=== PATIENT | female | born 1980 | race Caucasian/White ===

== ENCOUNTER 2016-11-28 10:32 | Emergency (ER) | payer MEDICAID ==
[~2016-11-28] VITALS: Ht 167.6 cm; Wt 108.9 kg
[~2016-11-28 10:32] MED LIST: AMOX-355 PO; CEPH500C PO; CYCL10TA9 PO; FRS325T PO; HYDR-91 PO; HYDR1CAP2 PO; IBP600T1 PO; IBP800T PO; MAGN100T3 PO; MTH.2T PO; PHENERGAN PO; POTA99TA7 PO; PRD20T PO; PREN1TAB39 PO; PROP1TAB77 PO
[2016-11-28] MEDS ORDERED: KETOROLAC 30 MG/ML VIAL IVP STA (11:31)
[2016-11-28] MEDS ORDERED: ORPHENADRINE 60 MG/2 ML (NORFLEX) AMP IV STA (11:31)
[2016-11-28] MEDS ORDERED: NS IV 1000 ML 1,000 ML IV ONE (11:31)
[2016-11-28] MEDS ORDERED: diphenhydrAMINE 50 MG/ML INJ (BENADRYL) IV STA (11:31)
--- NOTE | 2016-11-28 11:43 | ED Headache ---
General Chief Complaint: Head/Cervical Problems Stated Complaint: MIGRAINE Nursing Triage Note: PT STATES MIGRAINE FOR LAST THREE DAYS, HX OF MIGRAINES, ALSO LT SHOLDER PAIN THAT CAME AFTER THE MIGRAINE. Nursing Sepsis Screen: No Definite Risk Source: patient Exam Limitations: no limitations History of Present Illness Time seen by provider: 11:43 Initial Comments 36-year-old female patient presents to the emergency room for complaints of 3 day onset of migraine. Patient states she has a history of migraines and this feels similar to those. Does complain of left shoulder pain beginning this a.m. when she woke up. Denies known injury. Denies taking tylenol or motrin at home. Patient states she normally goes to [place] [facility] for migraines. Timing/Duration: waxing and waning, other (3 days) Severity/Quality: throbbing Location: frontal, parietal Prior Headaches/Recent Trauma: occasional headaches Modifying Factors: worse with exposure to light, worse with other (sound sensitivities) Associated Symptoms: No confusion, No fatigue, No fever/chills, No loss of consciousness, No nasal congestion, No numbness in legs/feet, No sinus infection , stiff neck (left neck and shoulder stiffness), No vision changes, No weakness Allergies and Home Medications Allergies Coded Allergies: No Known Drug Allergies (Unverified , 01/25/10) Home Medications Cyclobenzaprine HCl 10 Mg Tablet, 10 MG PO Q8H PRN for SPASMS, #14 Ref 0 Prescribed by: TOI GREENE on 11/28/16 1226 Prednisone 20 Mg Tab, 40 MG PO DAILY, #6 Prescribed by: ROBERT LIANG on 06/26/16 1840 Prednisone 20 Mg Tab, 40 MG PO DAILY, #10 Ref 0 Prescribed by: TOI GREENE on 11/28/16 1226 Constitutional: No chills, No dizziness, No fever, No malaise, No weakness Eyes: Denies Blurred Vision, Denies Decreased Acuity, Denies Pain, Photophobia , Denies Vision Changes, Glasses Ears, Nose, Mouth, Throat: denies ear pain, denies ear discharge, denies nose pain, denies nose discharge, denies mouth pain, denies loose teeth, denies throat pain Respiratory: cough (cough x1 wk since mowing her mother's yard (has seasonal allergies)), No dyspnea on exertion, No phlegm, No short of breath, No wheezing Cardiovascular: No chest pain, No edema, No palpitations, No syncope Gastrointestinal: No abdominal pain, No diarrhea, No nausea, No vomiting Genitourinary: no symptoms reported Musculoskeletal: No back pain, joint pain (left shoulder), No joint swelling, muscle pain (left neck and shoulder), muscle stiffness (left neck and left shoulder), neck pain Skin: no symptoms reported Psychiatric/Neurological: Headache, Denies Numbness, Denies Paresthesia, Denies Seizure, Denies Tingling, Denies Tremors, Denies Weakness All Other Systems Reviewed Negative Unless Noted: Yes (Negative excepted noted.) Past Iogdgrd-Yxxink-Qmaogd Hx Patient Social History Alcohol Use: Denies Use Recreational Drug Use: No (SMOKES 1/2 PPD) Smoking Status: Current Everyday Smoker Type Used: Cigarettes Recent Foreign Travel: No Contact w/Someone Who Travel: No Recent Infectious Disease Expo: No Recent Hopitalizations: No Immunizations Up To Date Date of Influenza Vaccine: Jun 07, 2011 Seasonal Allergies Seasonal Allergies: Yes Surgeries HX Surgeries: Yes Surgeries: Adenoidectomy, Tonsillectomy, Tubal Ligation Respiratory Hx Respiratory Disorders: No Cardiovascular Hx Cardiac Disorders: No Neurological Hx Neurological Disorders: Yes Neurological Disorders: Headaches /Migraines Reproductive System Hx Reproductive Disorders: No [employer]S SCIENTIST History: Tubal Ligation Genitourinary Hx Genitourinary Disorders: No Gastrointestinal Hx Gastrointestinal Disorders: No Musculoskeletal Hx Musculoskeletal Disorders: No Endocrine Hx Endocrine Disorders: Yes (OBESITY) Endocrine Disorders: Hypothyroidsim HEENT HX ENT Disorders: No Cancer Hx Cancer: No Psychosocial Hx Psychiatric Problems: No Integumentary HX Skin/Integumentary Disorder: No Blood Transfusions Hx Blood Disorders: No Reviewed Nursing Assessment Reviewed/Agree w Nursing PMH: Yes Family Medical History Significant Family History: No Pertinent Family Hx Physical Exam Vital Signs Vital Sign - Last 12Hours 11/28/16 10:56 Temp 98.4 Pulse 89 Resp 20 B/P (MAP) 138/87 Pulse Ox 97 O2 Delivery Room Air Capillary Refill : Less Than 3 Seconds General Appearance: WD/WN, no apparent distress HEENT: PERRL/EOMI, normal ENT inspection, TMs normal, pharynx normal, photophobia Neck: full range of motion, supple, tender lateral (left neck muscle spasm and tenderness), No tender midline Cardiovascular: normal peripheral pulses, regular rate, rhythm, no edema, no murmur Respiratory: lungs clear, normal breath sounds, no respiratory distress Gastrointestinal: non tender, soft, No distended Extremities: no pedal edema, normal capillary refill Psychiatric: alert, oriented x 3 Crainal Nerves: normal hearing, normal speech, PERRL Coordination/Gait: normal finger to nose, normal gait, negative Romberg's sign Motor/Sensory: no motor deficit, no sensory deficit, no pronator drift Skin: normal color, warm/dry Progress/Results/Core Measures Results/Orders My Orders Orders - TOI GREENE Saline Lock/Iv-Start (11/28/16 11:31) Ketorolac Injection (Toradol Injection) (11/28/16 11:31) Orphenadrine Injection (Norflex Injectio (11/28/16 11:31) Ondansetron Injection (Zofran Injectio (11/28/16 11:45) Ns Iv 1000 Ml (Sodium Chloride 0.9%) (11/28/16 11:31) Diphenhydramine Injection (Benadryl Inje (11/28/16 11:31) Morphine Injection (Morphine Injection (11/28/16 12:43) Dexamethasone Pf Injection (Decadron Pf (11/28/16 12:43) Medications Given in ED Current Medications Medications Dose Ordered Sig/Alvaro Route Start Time Stop Time Status Last Admin Dose Admin Ondansetron HCl 4 mg ONCE ONCE IVP 11/28/16 11:45 11/28/16 11:46 DC 11/28/16 11:45 4 MG Sodium Chloride 1,000 ml @ 0 mls/hr Q0M ONCE IV 11/28/16 11:31 11/28/16 11:34 DC 11/28/16 11:46 1,000 MLS/HR Vital Signs/I&O Vital Sign - Last 12Hours 11/28/16 10:56 Temp 98.4 Pulse 89 Resp 20 B/P (MAP) 138/87 Pulse Ox 97 O2 Delivery Room Air Blood Pressure Mean: 104 Departure Communication Progress Notes Patient was given Toradol, Norflex, 1 L normal saline, Benadryl, and Zofran with improvement in symptoms. Patient continued to have a headache of 4/10 and was given morphine and Decadron. Patient reports resolution of symptoms with above medications. Proceed with discharge to home. Impression Impression: Primary Impression: Migraine Qualified Codes: G43.009 - Migraine without aura, not intractable, without status migrainosus Additional Impression: Acute strain of neck muscle Qualified Codes: S16.1XXA - Strain of muscle, fascia and tendon at neck level , initial encounter Disposition: HOME, SELF-CARE Condition: Improved Departure-Patient Inst. Decision time for Depature: 12:24 Referrals: [facility] (PCP/Family) Primary Care Physician Patient Instructions: Migraine Headache (DC), Cervical Muscle Strain (DC) Add. Discharge Instructions: All discharge instructions reviewed with patient and/or family. Voiced understanding. Tylenol extra strength [id number] as directed for pain or headache. Ibuprofen 800 mg by mouth every 8 hours as needed for pain or headache. Drink plenty of fluids. Heating pad or pack as needed for muscle pain. Avoid bright lights and loud noises until symptoms improve. Follow-up with your family practitioner if no improvement in symptoms. Return to the emergency department for worsened pain, numbness, weakness, bowel incontinence, bladder incontinence, shortness of air, chest pain, seizure, vomiting, fever, changes in behavior, changes in speech, or any other concerns. Scripts Cyclobenzaprine HCl (Cyclobenzaprine HCl) 10 Mg Tablet 10 MG PO Q8H Y for SPASMS, #14 TAB 0 Refills Prov: TOI GREENE 11/28/16 Prednisone (Prednisone) 20 Mg Tab 40 MG PO DAILY, #10 TAB 0 Refills Prov: TOI GREENE 11/28/16 Work/School Note: Work Release Form Date Seen in the Emergency Department: Nov 28, 2016 Return to Work: Nov 29, 2016 TOI GREENE Nov 28, 2016 11:43
[2016-11-28] MEDS ORDERED: ONDANSETRON 4 MG/2 ML (SDV) Z0FRAN IVP ONE (11:45)
[2016-11-28] MEDS ORDERED: PRD20T PO (12:26)
[2016-11-28] MEDS ORDERED: CYCL10TA9 PO (12:26)
[2016-11-28] MEDS ORDERED: morphine INJ 10 MG/ML 1ML (SYR OR VIAL) IVP STA (12:43)
[2016-11-28] MEDS ORDERED: DEXAMETHASONE PF 10 MG/ML (DECADRON) VIAL IV STA (12:43)
[2016-11-28 13:45] VITALS: BP 117/71
== END 2016-11-28 13:45 | disposition home or self-care (01) ==
LOC: EDUNIT# 10:32 → ER 10:35
DX: G43.909 Migraine, unspecified, not intractable, without status migrainosus (principal); S16.1XXA Strain of muscle, fascia and tendon at neck level, initial encounter; F17.210 Nicotine dependence, cigarettes, uncomplicated; X50.9XXA Other and unspecified overexertion or strenuous movements or postures, initial encounter; Y99.8 Other external cause status
CPT/HCPCS: 96361; 96374; 96375

== ENCOUNTER 2017-08-19 20:54 | Emergency (ER) | payer MEDICAID ==
[~2017-08-19] VITALS: Ht 167.6 cm; Wt 111.6 kg
[2017-08-19] MEDS ORDERED: LEVO25TA5 (21:03)
[2017-08-19] MEDS ORDERED: KETOROLAC 60 MG/2 ML VIAL IM STA (21:37)
[2017-08-19] MEDS ORDERED: ONDANSETRON 4 MG (ZOFRAN) ORAL DISSOLVE TAB SL STA (21:37)
[2017-08-19] MEDS ORDERED: ORPHENADRINE 60 MG/2 ML (NORFLEX) AMP IM STA (21:37)
--- NOTE | 2017-08-19 21:39 | ED Headache ---
General Chief Complaint: Head/Cervical Problems Stated Complaint: NECK PAIN Nursing Triage Note: left neck pain/headache Nursing Sepsis Screen: No Definite Risk Source: patient Exam Limitations: no limitations History of Present Illness Time seen by provider: 21:39 Allergies and Home Medications Allergies Coded Allergies: No Known Drug Allergies (Unverified , 01/25/10) Home Medications Levothyroxine Sodium 25 Mcg Tablet, (Reported) Past Vfbpbpz-Cjcxsd-Fwgpmg Hx Patient Social History Alcohol Use: Denies Use Recreational Drug Use: No Smoking Status: Current Everyday Smoker Type Used: Cigarettes Recent Foreign Travel: No Contact w/Someone Who Travel: No Recent Infectious Disease Expo: No Recent Hopitalizations: No Immunizations Up To Date Tetanus Booster (TDap): Unknown Date of Influenza Vaccine: Jun 07, 2011 Seasonal Allergies Seasonal Allergies: Yes Surgeries History of Surgeries: Yes (dnc) Surgeries: Adenoidectomy, Tonsillectomy, Tubal Ligation Respiratory History of Respiratory Disorde: No Cardiovascular History of Cardiac Disorders: No Neurological History of Neurological Disord: Yes Neurological Disorders: Headaches /Migraines Reproductive System : No Last Menstrual Period: Aug 19, 2017 Hx Reproductive Disorders: No [employer] History: Tubal Ligation Genitourinary History of Genitourinary Disor: No Gastrointestinal History of Gastrointestinal Di: No Musculoskeletal History of Musculoskeletal Dis: No Endocrine History of Endocrine Disorders: Yes (OBESITY) Endocrine Disorders: Hypothyroidsim HEENT History of HEENT Disorders: No Cancer History of Cancer: No Psychosocial History of Psychiatric Problem: No Integumentary History of Skin or Integumenta: No Blood Transfusions History of Blood Disorders: No Family Medical History Significant Family History: No Pertinent Family Hx Physical Exam Vital Signs Vital Sign - Last 12Hours 08/19/17 21:00 Temp 96.6 Pulse 82 Resp 18 B/P (MAP) 136/70 (92) Pulse Ox 99 O2 Delivery Room Air Capillary Refill : Less Than 3 Seconds Progress/Results/Core Measures Results/Orders My Orders Orders - OTI GREENE Ketorolac Injection (Toradol Injection) (08/19/17 21:37) Orphenadrine Injection (Norflex Injectio (08/19/17 21:37) Ondansetron Oral Dissolve Tab (Zofran (08/19/17 21:37) Diphenhydramine Tablet (Benadryl Tablet) (08/19/17 21:45) Medications Given in ED Current Medications Medications Dose Ordered Sig/Alvaro Route Start Time Stop Time Status Last Admin Dose Admin Diphenhydramine HCl 25 mg ONCE ONCE PO 08/19/17 21:45 08/19/17 21:46 DC 08/19/17 21:45 25 MG Vital Signs/I&O Vital Sign - Last 12Hours 08/19/17 08/19/17 21:00 21:45 Temp 96.6 96.6 Pulse 82 Resp 18 B/P (MAP) 136/70 (92) Pulse Ox 99 O2 Delivery Room Air Blood Pressure Mean: 92 Departure Impression Impression: Primary Impression: Tension type headache Disposition: HOME, SELF-CARE Condition: Improved Departure-Patient Inst. Decision time for Depature: 22:35 Referrals: [facility] (PCP/Family) Primary Care Physician Patient Instructions: Tension Headache (DC) Add. Discharge Instructions: All discharge instructions reviewed with patient and/or family. Voiced understanding. Tylenol Extra Strength [id number]-[id number] as directed for pain. Ibuprofen 800 mg by mouth every 8 hours as needed for pain. Heating pads or packs as needed for muscle tension. Activity as tolerated. Follow-up with your primary care provider for recheck as an outpatient Monday or Monday for recheck. Return to the emergency department for worsened headache, dizziness, changes in vision, slurred speech, visual drooping, numbness, weakness, bowel incontinence, chest pain, shortness of air, or any other concerns. TOI GREENE Aug 19, 2017 21:39
[2017-08-19] MEDS ORDERED: diphenhydrAMINE 25 MG TAB (BENADRYL) PO ONE (21:45)
[2017-08-19 23:05] VITALS: BP 124/68
== END 2017-08-19 23:03 | disposition home or self-care (01) ==
LOC: EDUNIT# 20:54 → ER 20:55
DX: G44.209 Tension-type headache, unspecified, not intractable (principal); E03.9 Hypothyroidism, unspecified; E66.9 Obesity, unspecified; G43.909 Migraine, unspecified, not intractable, without status migrainosus; F17.210 Nicotine dependence, cigarettes, uncomplicated; Z98.51 Tubal ligation status; Z90.89 Acquired absence of other organs; Z68.39 Body mass index [BMI] 39.0-39.9, adult
CPT/HCPCS: 99284

== ENCOUNTER 2018-09-26 17:52 | Emergency (ER) | payer MEDICAID ==
[~2018-09-26] VITALS: Ht 167.6 cm; Wt 117.9 kg
[~2018-09-26 17:52] MED LIST changes: +LEVO25TA5
--- OUTSIDE RECORDS SUMMARY | 2018-09-26 18:14 | XMS REPORT ---
Author Author JAISON QURESHI [facility] Address [address] [place] [address] Care Team Providers Care Clinical Massage Therapist Name Role Phone JAISON QURESHI Unavailable PROBLEMS Type Condition ICD9-CM Code [id number] Code Onset Dates Condition Status SNOMED Code Problem Moderate episode of recurrent major depressive disorder F33.1 Active 765416482 Problem Other specified hypothyroidism E03.8 Active 550910354 Problem Autoimmune thyroiditis E06.3 Active 55366706 ALLERGIES No Known Allergies ENCOUNTERS Encounter Location Date Diagnosis [address] [id number] Jun, [address] [id number] May, Myalgia M79.[address] [place] [id number] [place] [address] [id number] May, Other specified hypothyroidism E03.8 and Moderate episode of recurrent major depressive disorder F33.[address] [place] [id number] [place] [address] [id number] Feb, Tendonitis M77.9 ; Posterior right knee pain M25.561 and Strain of right knee, subsequent encounter S86.911D [place] [id number] [place] [address] [id number] Feb, Tendonitis M77.[address] [place] [id number] [place] [address] [id number] December, [address] [id number] December, Left hand pain M79.[address] [place] [id number] [place] [address] [id number] Oct, BMI 40.0-44.9, adult Z68.41 and Acute nasopharyngitis J00 [address] [id number] May, Visit for suture removal Z48.02 ; Encounter for vaccination Z23 and Encounter for immunization Z23 [address] [place] [address] [id number] December, Tooth decayed K02.9 and Tooth caries K02.9 [place] [id number] [place] [address] [id number] December, Autoimmune thyroiditis E06.3 and Acute nasopharyngitis J00 [address] [place] [address] [id number] Oct, Syncope, unspecified syncope type R55 ; Other specified hypothyroidism E03.8 and Autoimmune thyroiditis E06.[address] [place] [address] [id number] Oct, Muscle spasm M62.838 and Neck pain, acute M54.[address] [place] [id number] [id number] Jan, Hordeolum externum of right upper eyelid H00.[address] [place] [address] [id number] December, [address] [place] [address] [id number] December, Hypothyroid 244.9 [facility] [id number] [place] [id number] [phone] Nov, [facility] [id number] [place] [address] Nov, [facility] [id number] [place] [address] [id number] [phone] Aug, [facility] [address] [id number] Aug, [id number] [place] [address] [id number] Aug, [facility] [address] [address] Aug, [facility] [address] [id number] [place] [id number] Aug, [facility] [place] [facility] [address] [id number] [place] [address] Aug, [facility] [address] [id number] [place] [id number] Jul, [facility] [place] [facility] [address] [id number] [place] [address] Jul, [facility] [address] [id number] [place] [id number] Jul, [facility] [place] [facility] [address] [facility] [id number] [place] [address] Jul, [facility] [address] [facility] [id number] [place] [id number] Jun, [facility] [place] [facility] [address] [id number] [address] Jun, [facility] [place] [facility] [address] [facility] [id number], [place] [address] Aug, [facility] [place] [facility] [address] [facility] [id number], [place] [address] Aug, [facility] [address] [facility] [id number] [id number] Mar, [facility] [address] [facility] [id number][place] [id number] Jul, [facility] [place] [facility] [address] [id number], [place] [address] Jul, [facility] [place] [facility] [address] [id number], [place] [address] Jun, [facility] [address] [facility] [id number] [place] [id number] Jun, [facility] [place] [facility] [address] [facility] [id number], [place] [address] Sep, [facility] [place] [facility] [address] [facility] [id number] [place] [address] Jun, [facility] [address] [facility] [id number], [place] [address] Jun, [facility] [address] [facility] [id number], [place] [address] May, [facility] [address] [facility] [id number][place] [address] May, [facility] [address] [facility] [id number], [place] [address] May, IMMUNIZATIONS No Known Immunizations SOCIAL HISTORY Never Assessed REASON FOR VISIT needing refills on thyroid meds, last TSH checked was in 10/21. Also wanting something for nerves, Feels she can't handle stress. karlo Cardenas PLAN OF CARE Activity Details Follow Up 4 Weeks Reason:depression VITAL SIGNS Height 68 in 2018-05-07 Weight 253.2 lbs 2018-05-07 Temperature 98.1 degrees Fahrenheit 2018-05-07 Heart Rate 78 bpm 2018-05-07 Respiratory Rate 16 2018-05-07 BMI 38.49 kg/m2 2018-05-07 Blood pressure systolic 122 mmHg 2018-05-07 Blood pressure diastolic 74 mmHg 2018-05-07 MEDICATIONS Medication Instructions Dosage Frequency Start Date End Date Duration Status Ibuprofen 800 MG Orally Three times a day 1 tablet with food or milk as needed 8h Active Levothyroxine Sodium 25 mcg Orally Once a day 1 tablet 24h December, Active Sertraline HCl 25 MG Orally Once a day 1 tablet x 2 wk then 2 tab qd 24h May, Active RESULTS No Results PROCEDURES No Known procedures INSTRUCTIONS MEDICATIONS ADMINISTERED No Known Medications MEDICAL (GENERAL) HISTORY Type Description Date Medical History Frequent Migraines Medical History Hypothyroidism Surgical History tubal ligation 2011 Surgical History tonsillectomy 1985 Surgical History dilatation and curettage 2009
--- OUTSIDE RECORDS SUMMARY | 2018-09-26 18:14 | XMS REPORT ---
Author Author MAGO NYE Organization [facility] Address [address] [place] [address] Care Team Providers Care Leather Polisher Name Role Phone MAGO NYE Unavailable PROBLEMS Type Condition ICD9-CM Code OTI04-UN Code Onset Dates Condition Status SNOMED Code Problem Other specified hypothyroidism E03.8 Active 849718267 Problem Autoimmune thyroiditis E06.3 Active 85704884 ALLERGIES No Known Allergies ENCOUNTERS Encounter Location Date Diagnosis [place] [id number] [place] [id number] May, [address] [id number] Feb, Tendonitis M77.9 ; Posterior right knee pain M25.561 and Strain of right knee, subsequent encounter S86.911D [place] [address] [id number] Feb, Tendonitis M77.9 [facility] [id number] [place] [address] [id number] December, [place] [id number] [place] [address] [id number] December, Left hand pain M79.[address] [id number] Oct, BMI 40.0-44.9, adult Z68.41 and Acute nasopharyngitis J00 [address] [id number] May, Visit for suture removal Z48.02 ; Encounter for vaccination Z23 and Encounter for immunization Z23 [place] [id number] [place] [address] [id number] December, Tooth decayed K02.9 and Tooth caries K02.9 [facility] [id number] [id number] December, Autoimmune thyroiditis E06.3 and Acute nasopharyngitis J00 [place] [id number] [place] [address] [id number] Oct, Syncope, unspecified syncope type R55 ; Other specified hypothyroidism E03.8 and Autoimmune thyroiditis E06.3 [facility] [id number] [place] [address] [id number] Oct, Muscle spasm M62.838 and Neck pain, acute M54.2 [place] [address] [facility] [id number] [id number] Jan, Hordeolum externum of right upper eyelid H00.011 [facility] [address] [place] [address] [id number] December, [place] [id number] [place] [address] [id number] December, Hypothyroid 244.9 [facility] [id number] [place] [address] [id number]- 6528 Nov, [facility] [address] [address] Nov, [facility] [id number] [place] [address] 886655- 8740 Aug, [facility] [id number] [place] [address] 54233- 9619 Aug, [facility] [id number] [place] [address] [id number] Aug, [facility] [id number] [place] [address] 18645- 1652 Aug, [facility] [address] [place] [address] [id number] Aug, [facility] [id number] [place] [address] 04459- 6996 Aug, [facility] [address] [place] [id number] [id number] Jul, [facility] [address] [id number] [place] [address] Jul, [facility] [address] [id number] [place] [id number] Jul, [facility] [place] [facility] [address] [id number] [place] [address] Jul, [facility] [address] [id number] [place] [phone] Jun, [facility] [place] [facility] [address] [id number] [place] [address]- 6936 Jun, [facility] [place] [facility] [address] [facility] [id number] [place] [address] 84[address] Aug, [facility] [place] [facility] [address] [id number] [place] [address]- 9[address] Aug, [facility] [address] [id number][place] [id number] Mar, [facility] [address] [facility] [id number] [place] [id number] Jul, [facility] [place] [facility] [address] [facility] [id number] [place] [address]- 3606 Jul, [facility] [place] [facility] [address] [id number], [place] [address] 5686 Jun, [facility] [address] [facility] [id number] [place] [id number] Jun, [facility] [place] [facility] [address] [id number], [place] [address] Sep, [facility] [place] [facility] [address] [id number] [place] [address]- 5266 Jun, [facility] [place] [facility] [address] [id number] [place] [address]- 2546 Jun, [facility] [place] [facility] [address] [facility] [id number] [place] [address] 7[address] May, [facility] [address] [facility] [id number] [place] [address] 79[address] May, [facility] [address] [facility] [id number] [place] [address] May, IMMUNIZATIONS No Known Immunizations SOCIAL HISTORY Never Assessed REASON FOR VISIT back of right knee pain since . Awa worthy, Saw Morteza on for same R knee pain. She stated that he said the "tendon was enlarged" PLAN OF CARE Activity Details Follow Up 3-4 weeks if pain not improving Reason: VITAL SIGNS Height 68 in 2018-02-20 Weight 262.6 lbs 2018-02-20 Temperature 98.4 degrees Fahrenheit 2018-02-20 Heart Rate 81 bpm 2018-02-20 Respiratory Rate 10 2018-02-20 Oximetry 98 % 2018-02-20 BMI 39.92 kg/m2 2018-02-20 Blood pressure systolic 122 mmHg 2018-02-20 Blood pressure diastolic 70 mmHg 2018-02-20 MEDICATIONS Medication Instructions Dosage Frequency Start Date End Date Duration Status Ibuprofen 800 MG Orally Three times a day 1 tablet with food or milk as needed 8h Active Benzonatate 100 mg Orally Three times a day 1 capsule as needed 8h Oct, Not-Taking Levothyroxine Sodium 25 MCG Orally Once a day 1 tablet 24h December, Active RESULTS No Results PROCEDURES No Known procedures INSTRUCTIONS MEDICATIONS ADMINISTERED No Known Medications MEDICAL (GENERAL) HISTORY Type Description Date Medical History Frequent Migraines Medical History Hypothyroidism Surgical History tubal ligation 2011 Surgical History tonsillectomy 1985
--- OUTSIDE RECORDS SUMMARY | 2018-09-26 18:14 | XMS REPORT ---
Author Author JAISON QURESHI [facility] Address [address] [place] [address] Care Team Providers Care Computer Installation Engineer Name Role Phone QURESHIJAISON Unavailable PROBLEMS Type Condition ICD9-CM Code TVW93-XG Code Onset Dates Condition Status SNOMED Code Problem Other specified hypothyroidism E03.8 Active 738793288 Problem Autoimmune thyroiditis E06.3 Active 88935982 ALLERGIES No Known Allergies ENCOUNTERS Encounter Location Date Diagnosis [place] [id number] [place] [id number] Apr, [address] [id number] Feb, Tendonitis M77.9 ; Posterior right knee pain M25.561 and Strain of right knee, subsequent encounter S86.911D [place] [id number] [place] [address] [id number] Feb, Tendonitis M77.9 [place] [id number] [place] [address] [id number] December, [place] [id number] [place] [address] [id number] December, Left hand pain M79.642 [place] [id number] [place] [address] [id number] Oct, BMI 40.0-44.9, adult Z68.41 and Acute nasopharyngitis J00 [address] [id number] May, Visit for suture removal Z48.02 ; Encounter for vaccination Z23 and Encounter for immunization Z23 [place] [id number] [place] [address] [id number] December, Tooth decayed K02.9 and Tooth caries K02.[address] [id number] December, Autoimmune thyroiditis E06.3 and Acute [facility]itis J00 [facility] [address] [place] [address] [id number] Oct, Syncope, unspecified syncope type R55 ; Other specified hypothyroidism E03.8 and Autoimmune thyroiditis E06.3 [facility] [id number] [place] [address] [id number] Oct, Muscle spasm M62.838 and Neck pain, acute M54.2 [facility] [place] [address] [facility] [id number] [id number] Jan, Hordeolum externum of right upper eyelid H00.011 [facility] [address] [place] [address] [id number] December, [facility] [id number] [place] [address] [id number] December, Hypothyroid 244.9 [facility] [id number] [place] [address] 83636- 6926 Nov, [facility] [id number] [place] [address] 49536- 3996 Nov, [facility] [id number] [place] [address] 51871- 2656 Aug, [facility] [id number] [place] [address] 14498- 5776 Aug, [facility] [address] [place] [id number] [place] [address] [id number] Aug, [facility] [id number] [place] [address] 93830- 4816 Aug, [facility] [address] [id number] [place] [address] [id number] Aug, [facility] [id number] [place] [address] 99340- 2546 Aug, [facility] [id number] [place] [address] [id number] Jul, [facility] [place] [facility] [address] [id number], [place] [address] 2356 Jul, [facility] [address] [facility] [id number] [place] [id number] Jul, [facility] [place] [facility] [address] [id number], [place] [address] 2546 Jul, [facility] [address] [facility] [id number] [place] [id number] Jun, [facility] [place] [facility] [address] [facility] [id number] [place] [address]- 3436 Jun, [facility] [place] [facility] [address] [facility] [id number] [place] [address]- 2050 Aug, [facility] [place] [facility] [address] [facility] [id number], [place] [address]- 0642 Aug, [facility] [address] [place] [id number] [id number] Mar, [facility] [address] [facility] [id number][place] [id number] Jul, [facility] [place] [facility] [address] [place] [id number], [place] [address]- 4356 Jul, [facility] [place] [facility] [address] [place] [id number], [place] [address]- 2426 Jun, [facility] [address] [place] [id number][place] [phone] Jun, [facility] [place] [facility] [address] [id number], [place] [address]- 4646 Sep, [facility] [place] [facility] [address] [id number], [place] [address]- 2256 Jun, [facility] [place] [facility] [address] [facility] [id number], [place] [address]- 6736 Jun, [facility] [place] [facility] [address] [facility] [id number], [place] [address]- 7854 May, [facility] [place] [facility] [address] [facility] [id number] [place] [address]- 6432 May, [facility] [address] [facility] [id number] [place] [address]- 3385 May, IMMUNIZATIONS No Known Immunizations SOCIAL HISTORY Never Assessed REASON FOR VISIT Pt c/o right knee pain, woke up this morning burning pain, hurts to walk on it Rhonda KUNZ PLAN OF CARE Activity Details Follow Up prn Reason: VITAL SIGNS Height 68 in 2018-02-15 Weight 256.4 lbs 2018-02-15 Temperature 97.8 degrees Fahrenheit 2018-02-15 Heart Rate 94 bpm 2018-02-15 Respiratory Rate 20 2018-02-15 BMI 38.98 kg/m2 2018-02-15 Blood pressure systolic 122 mmHg 2018-02-15 Blood pressure diastolic 78 mmHg 2018-02-15 MEDICATIONS Medication Instructions Dosage Frequency Start Date End Date Duration Status Ibuprofen 800 MG Orally Three times a day 1 tablet with food or milk as needed 8h December, Active Levothyroxine Sodium 25 MCG Orally Once a day 1 tablet 24h December, Active Benzonatate 100 mg Orally Three times a day 1 capsule as needed 8h Oct, Not-Taking RESULTS No Results PROCEDURES No Known procedures INSTRUCTIONS MEDICATIONS ADMINISTERED No Known Medications MEDICAL (GENERAL) HISTORY Type Description Date Medical History Frequent Migraines Medical History Hypothyroidism Surgical History tubal ligation 2011 Surgical History tonsillectomy 1985
[2018-09-26] MEDS ORDERED: DICYCLOMINE 10 MG (BENTYL) CAP PO STA (18:15)
[2018-09-26] MEDS ORDERED: fentaNYL INJECTION 100 MCG/2 ML AMP IVP STA (18:15)
--- OUTSIDE RECORDS SUMMARY | 2018-09-26 18:15 | XMS REPORT ---
Author Author MAYTE SNOW [facility] Address [address] [place] [address] Care Team Providers Care Dental Coordinator Name Role Phone MAYTE SNOW Unavailable PROBLEMS Type Condition ICD9-CM Code MYX36-YW Code Onset Dates Condition Status SNOMED Code Problem Other specified hypothyroidism E03.8 Active 307769401 Problem Autoimmune thyroiditis E06.3 Active 21448477 Problem Migraine, unspecified without mention of intractable migraine without mention of status migrainosus 346.90 Active 12049950 Problem Headache 784.0 Active 37862630 Problem Hordeolum externum of right upper eyelid H00.011 Active 6091184 Problem Hypothyroid 244.9 Active 07992677 ALLERGIES No Known Allergies SOCIAL HISTORY Never Assessed PLAN OF CARE Activity Details Follow Up prn Reason: VITAL SIGNS Height 68 in 2016-12-15 Weight 255.6 lbs 2016-12-15 Temperature 97.9 degrees Fahrenheit 2016-12-15 Heart Rate 56 bpm 2016-12-15 Respiratory Rate 16 2016-12-15 BMI 38.86 kg/m2 2016-12-15 Blood pressure systolic 128 mmHg 2016-12-15 Blood pressure diastolic 72 mmHg 2016-12-15 MEDICATIONS Medication Instructions Dosage Frequency Start Date End Date Duration Status Amoxicillin 500 mg Orally every 12 hrs 2 tablets 12h December, December, 10 day(s) Active RESULTS No Results PROCEDURES No Known procedures IMMUNIZATIONS No Known Immunizations MEDICAL (GENERAL) HISTORY Type Description Date Medical History Frequent Migraines Surgical History tubal ligation 2011 Surgical History tonsillectomy 1985
--- OUTSIDE RECORDS SUMMARY | 2018-09-26 18:15 | XMS REPORT ---
Author Author JAISON QURESHI [facility] Address [address] [place] [address] Care Team Providers Care Cementer Machine Applicator Name Role Phone JAISON QURESHI Unavailable PROBLEMS Type Condition ICD9-CM Code BES11-OZ Code Onset Dates Condition Status SNOMED Code Problem Other specified hypothyroidism E03.8 Active 155412416 Problem Autoimmune thyroiditis E06.3 Active 79193568 ALLERGIES No Known Allergies ENCOUNTERS Encounter Location Date Diagnosis [address] [id number] Feb, Tendonitis M77.9 ; Posterior right knee pain M25.561 and Strain of right knee, subsequent encounter S86.911D [address] [id number] Feb, Tendonitis M77.[address] [id number] December, [address] [id number] December, Left hand pain M79.[address] [id number] Oct, BMI 40.0-44.9, adult Z68.41 and Acute nasopharyngitis J00 [address] [id number] May, Visit for suture removal Z48.02 ; Encounter for vaccination Z23 and Encounter for immunization Z23 [address] [id number] December, Tooth decayed K02.9 and Tooth caries K02.9 [place] [id number] [place] [address] [id number] December, Autoimmune thyroiditis E06.3 and Acute nasopharyngitis J00 [facility] [address] [facility] [id number] [id number] 14 Oct, 2016 Syncope, unspecified syncope type R55 ; Other specified hypothyroidism E03.8 and Autoimmune thyroiditis E06.3 [facility] [id number][place] [id number] 06 Oct, 2016 Muscle spasm M62.838 and Neck pain, acute M54.2 [facility] [address] [id number][place] [id number] Jan, Hordeolum externum of right upper eyelid H00.011 [facility] [id number] [place] [address] [id number] December, [facility] [id number] [place] [address] [id number] December, Hypothyroid 244.9 [facility] [place] [address] [id number] [place] [address] 21769- 3326 Nov, [facility] [place] [id number] [place] [address] 54573- 7753 Nov, [facility] [place] [address] [id number] [place] [address] 71949- 2279 Aug, [facility] [place] [address] [id number] [place] [address] 95635- 1676 Aug, [facility] [id number], [place] [id number] Aug, [facility] [place] [id number] [place] [address] 14283- 0776 Aug, [facility] [id number], [place] [id number] Aug, [facility] [place] [id number] [place] [address] 55807 2546 Aug, [facility] [id number], [place] [id number] Jul, [facility] [place] [id number] [place] [address] 48060- 8232 Jul, [facility] [address] [id number] [place] [id number] Jul, [facility] [address] [id number] [place] [address]- 2406 Jul, [facility] [address] [id number] [place] [id number] Jun, [facility] [place] [facility] [address] [facility] [id number], [place] [address]- 7989 Jun, [facility] [place] [facility] [address] [id number], [place] [address]- 4652 Aug, [facility] [place] [facility] [address] [id number] [place] [address]- 9852 Aug, [facility] [address] [id number] [place] [id number] Mar, [facility] [address] [id number] [place] [id number] Jul, [facility] [place] [facility] [address] [id number], [place] [address]- 9112 Jul, [facility] [place] [facility] [address] [facility] [id number], [place] [address]- 7833 Jun, [facility] [address] [facility] [id number] [place] [id number] Jun, [facility] [place] [facility] [address] [facility] [id number], [place] [address]- 8348 Sep, [facility] [place] [facility] [address] [facility] [id number], [place] [address]- 0217 Jun, [facility] [place] [facility] [address] [facility] [id number], [place] [address]- 8451 Jun, [facility] [place] [facility] [address] [facility] [id number], [place] [address]- 1091 May, [facility] [place] [facility] [address] [facility] [id number], [place] [address]- 7889 May, [facility] [place] [facility] [address] [facility] [id number] [place] [address]- 4691 May, IMMUNIZATIONS No Known Immunizations SOCIAL HISTORY Never Assessed REASON FOR VISIT cough and congestion x 4 days. karlo Cardenas PLAN OF CARE Activity Details Follow Up prn Reason: VITAL SIGNS Height 68 in 2017-10-30 Weight 266 lbs 2017-10-30 Temperature 98.2 degrees Fahrenheit 2017-10-30 Heart Rate 78 bpm 2017-10-30 Respiratory Rate 16 2017-10-30 BMI 40.44 kg/m2 2017-10-30 Blood pressure systolic 122 mmHg 2017-10-30 Blood pressure diastolic 76 mmHg 2017-10-30 MEDICATIONS Medication Instructions Dosage Frequency Start Date End Date Duration Status Levothyroxine Sodium 25 MCG Orally Once a day 1 tablet 24h December, Active Benzonatate 100 mg Orally Three times a day 1 capsule as needed 8h Oct, Active RESULTS No Results PROCEDURES No Known procedures INSTRUCTIONS MEDICATIONS ADMINISTERED No Known Medications MEDICAL (GENERAL) HISTORY Type Description Date Medical History Frequent Migraines Medical History Hypothyroidism Surgical History tubal ligation 2011 Surgical History tonsillectomy 1985
--- OUTSIDE RECORDS SUMMARY | 2018-09-26 18:15 | XMS REPORT ---
Author Author JAISON QURESHI [facility] Address [address] [place] [address] Care Team Providers Care Press Washer Name Role Phone JAISON QURESHI Unavailable PROBLEMS Type Condition ICD9-CM Code [id number] Code Onset Dates Condition Status SNOMED Code Problem Other specified hypothyroidism E03.8 Active 021020892 Problem Autoimmune thyroiditis E06.3 Active 07868887 Problem Migraine, unspecified without mention of intractable migraine without mention of status migrainosus 346.90 Active 31132317 Problem Headache 784.0 Active 04046540 Problem Hordeolum externum of right upper eyelid H00.011 Active 1977338 Problem Hypothyroid 244.9 Active 27820854 ALLERGIES No Known Allergies SOCIAL HISTORY Never Assessed PLAN OF CARE Activity Details Follow Up prn Reason: VITAL SIGNS Height 68 in 2016-12-06 Weight 249.4 lbs 2016-12-06 Temperature 98.2 degrees Fahrenheit 2016-12-06 Heart Rate 78 bpm 2016-12-06 Respiratory Rate 18 2016-12-06 BMI 37.92 kg/m2 2016-12-06 Blood pressure systolic 120 mmHg 2016-12-06 Blood pressure diastolic 72 mmHg 2016-12-06 MEDICATIONS No Known Medications RESULTS No Results PROCEDURES No Known procedures IMMUNIZATIONS No Known Immunizations MEDICAL (GENERAL) HISTORY Type Description Date Medical History Frequent Migraines Surgical History tubal ligation 2011 Surgical History tonsillectomy 1985
--- OUTSIDE RECORDS SUMMARY | 2018-09-26 18:15 | XMS REPORT ---
Author Author JAISON QURESHI [facility] Address [address] [place] [address] Care Team Providers Care Metalizing Machine Operator Automatic Name Role Phone QURESHIJAISON Unavailable PROBLEMS Type Condition ICD9-CM Code NCK01-LN Code Onset Dates Condition Status SNOMED Code Problem Other specified hypothyroidism E03.8 Active 419435387 Problem Autoimmune thyroiditis E06.3 Active 12727248 ALLERGIES No Known Allergies ENCOUNTERS Encounter Location Date Diagnosis [place] [id number] [place] [id number] Apr, [address] [id number] Feb, Tendonitis M77.9 ; Posterior right knee pain M25.561 and Strain of right knee, subsequent encounter S86.911D [place] [id number] [place] [address] [id number] Feb, Tendonitis M77.9 [place] [id number] [place] [address] [id number] December, [place] [id number] [place] [address] [id number] December, Left hand pain M79.642 [place] [id number] [place] [address] [id number] Oct, BMI 40.0-44.9, adult Z68.41 and Acute nasopharyngitis J00 [address] [id number] May, Visit for suture removal Z48.02 ; Encounter for vaccination Z23 and Encounter for immunization Z23 [place] [id number] [place] [address] [id number] December, Tooth decayed K02.9 and Tooth caries K02.9 [address] [id number] December, Autoimmune thyroiditis E06.3 and Acute nasopharyngitis J00 [facility] [place] [id number] [place] [address] [id number] Oct, Syncope, unspecified syncope type R55 ; Other specified hypothyroidism E03.8 and Autoimmune thyroiditis E06.3 [facility] [place] [id number] [place] [address] [id number] Oct, Muscle spasm M62.838 and Neck pain, acute M54.2 [facility] [place] [id number] [facility] [id number] [id number] Jan, Hordeolum externum of right upper eyelid H00.011 [facility] [id number] [place] [address] [id number] December, [facility] [id number] [place] [address] [id number] December, Hypothyroid 244.9 [facility] [id number] [place] [address]30- 8196 Nov, [facility] [id number] [place] [address] 57809- 1856 Nov, [facility] [id number] [place] [address]04- 1586 Aug, [facility] [id number] [place] [address] 51091- 3666 Aug, [facility] [id number] [place] [address] [id number] Aug, [facility] [id number] [place] [address] 44284- 3556 Aug, [facility] [id number] [place] [address] [id number] Aug, [facility] [id number] [place] [address] 57[address]- 2546 Aug, [facility] [id number] [place] [address] [id number] Jul, [facility] [place] [facility] [address] [id number], [place] [address] Jul, [facility] [address] [facility] [id number] [place] [id number] Jul, [facility] [place] [facility] [address] [id number], [place] [address]46 Jul, [facility] [address] [facility] [id number] [place] [phone] Jun, [facility] [place] [facility] [address] [facility] [id number] [place] [address] 1196 Jun, [facility] [place] [facility] [address] [facility] [id number] [place] [address] 4876 Aug, [facility] [place] [facility] [address] [facility] [id number], [place] [address] Aug, [facility] [address] [id number] [id number] Mar, [facility] [address] [facility] [id number][place] [id number] Jul, [facility] [place] [facility] [address] [id number], [place] [address] Jul, [facility] [place] [facility] [address] [id number], [place] [address] Jun, [facility] [address] [place] [address] [id number] [id number] Jun, [facility] [place] [facility] [address] [id number], [place] [address] Sep, [facility] [place] [facility] [address] [id number], [place] [address] 69[address] Jun, [facility] [place] [facility] [address] [facility] [id number], [place] [address]56 Jun, [facility] [place] [facility] [address] [facility] [id number], [place] [address] May, [facility] [place] [facility] [address] [facility] [id number] [place] [address] May, [facility] [address] [facility] [id number] [place] [address] May, IMMUNIZATIONS No Known Immunizations SOCIAL HISTORY Never Assessed REASON FOR VISIT Left hand pain x24 hours. States that it was "smashed" Rashawn GONZALEZ PLAN OF CARE Activity Details Follow Up 2 Weeks Reason:hand VITAL SIGNS Height 68 in 2017-12-13 Weight 257.6 lbs 2017-12-13 Temperature 98.2 degrees Fahrenheit 2017-12-13 Heart Rate 80 bpm 2017-12-13 Respiratory Rate 16 2017-12-13 BMI 39.16 kg/m2 2017-12-13 Blood pressure systolic 116 mmHg 2017-12-13 Blood pressure diastolic 74 mmHg 2017-12-13 MEDICATIONS Medication Instructions Dosage Frequency Start Date End Date Duration Status Benzonatate 100 mg Orally Three times a day 1 capsule as needed 8h Oct, Not-Taking Levothyroxine Sodium 25 MCG Orally Once a day 1 tablet 24h December, Active Ibuprofen 800 MG Orally Three times a day 1 tablet with food or milk as needed 8h December, Active RESULTS Name Result Date Reference Range Xray : Hand, Left 2017-12-13 PROCEDURES No Known procedures INSTRUCTIONS MEDICATIONS ADMINISTERED No Known Medications MEDICAL (GENERAL) HISTORY Type Description Date Medical History Frequent Migraines Medical History Hypothyroidism Surgical History tubal ligation 2011 Surgical History tonsillectomy 1985
--- OUTSIDE RECORDS SUMMARY | 2018-09-26 18:15 | XMS REPORT ---
Author Author MAGO NYE Organization [facility] Address [address] [place] [address] Care Team Providers Care Pension Fund Manager Name Role Phone MAGO NYE Unavailable PROBLEMS Type Condition ICD9-CM Code ETS04-WF Code Onset Dates Condition Status SNOMED Code Problem Other specified hypothyroidism E03.8 Active 245979551 Problem Autoimmune thyroiditis E06.3 Active 29536639 Problem Migraine, unspecified without mention of intractable migraine without mention of status migrainosus 346.90 Active 60229681 Problem Headache 784.0 Active 85335048 Problem Hordeolum externum of right upper eyelid H00.011 Active 2808626 Problem Hypothyroid 244.9 Active 40264721 ALLERGIES No Known Allergies SOCIAL HISTORY Never Assessed PLAN OF CARE Activity Details Follow Up 4 Weeks Reason:if s/s not improved VITAL SIGNS Height 68 in 2016-10-10 Weight 250.6 lbs 2016-10-10 Temperature 97.9 degrees Fahrenheit 2016-10-10 Heart Rate 76 bpm 2016-10-10 Respiratory Rate 16 2016-10-10 BMI 38.10 kg/m2 2016-10-10 Blood pressure systolic 120 mmHg 2016-10-10 Blood pressure diastolic 68 mmHg 2016-10-10 MEDICATIONS Medication Instructions Dosage Frequency Start Date End Date Duration Status Baclofen 10 mg Orally Two times a day for muscle spasms 1 tablet with food or milk Oct, Oct, 14 days Active Ibuprofen 800 MG Orally Three times a day 1 tablet 8h Oct, Nov, 30 day(s) Active RESULTS No Results PROCEDURES No Known procedures IMMUNIZATIONS No Known Immunizations MEDICAL (GENERAL) HISTORY Type Description Date Medical History Frequent Migraines Surgical History tubal ligation 2011 Surgical History tonsillectomy 1985
--- OUTSIDE RECORDS SUMMARY | 2018-09-26 18:15 | XMS REPORT ---
Author Author JAISON QURESHI [facility] Address [address] [place] [address] Care Team Providers Care Multimedia Engineer Name Role Phone JAISON QURESHI Unavailable PROBLEMS Type Condition ICD9-CM Code BGT69-ZA Code Onset Dates Condition Status SNOMED Code Problem Other specified hypothyroidism E03.8 Active 443377558 Problem Autoimmune thyroiditis E06.3 Active 48846833 Problem Migraine, unspecified without mention of intractable migraine without mention of status migrainosus 346.90 Active 64274156 Problem Headache 784.0 Active 66347899 Problem Hordeolum externum of right upper eyelid H00.011 Active 7009367 Problem Hypothyroid 244.9 Active 50354436 ALLERGIES No Known Allergies SOCIAL HISTORY Never Assessed PLAN OF CARE Activity Details Follow Up 1 Week Reason:lab results VITAL SIGNS Height 68 in 2016-10-18 Weight 248 lbs 2016-10-18 Temperature 97.1 degrees Fahrenheit 2016-10-18 Heart Rate 80 bpm 2016-10-18 Respiratory Rate 18 2016-10-18 BMI 37.70 kg/m2 2016-10-18 Blood pressure systolic 128 mmHg 2016-10-18 Blood pressure diastolic 62 mmHg 2016-10-18 MEDICATIONS Medication Instructions Dosage Frequency Start Date End Date Duration Status Baclofen 10 mg Orally Two times a day for muscle spasms 1 tablet with food or milk Oct, Oct, 14 days Active Ibuprofen 800 MG Orally Three times a day 1 tablet 8h Oct, Nov, 30 day(s) Active RESULTS Name Result Date Reference Range TSH 2016-10-18 TSH 4.620 0.450-4.500 PROCEDURES Procedure Date Ordered Result Body Site ASSAY THYROID STIM HORMONE October 18, 2016 VENIPUNCT, ROUTINE* October 18, 2016 IMMUNIZATIONS No Known Immunizations MEDICAL (GENERAL) HISTORY Type Description Date Medical History Frequent Migraines Surgical History tubal ligation 2011 Surgical History tonsillectomy 1985
--- OUTSIDE RECORDS SUMMARY | 2018-09-26 18:15 | XMS REPORT ---
Author Author JAISON QURESHI [facility] Address [address] [place] [address] Care Team Providers Care Medical Records Supervisor Name Role Phone QURESHIJAISON Unavailable PROBLEMS Type Condition ICD9-CM Code WKR06-WK Code Onset Dates Condition Status SNOMED Code Problem Other specified hypothyroidism E03.8 Active 935493906 Problem Autoimmune thyroiditis E06.3 Active 20357322 ALLERGIES No Information ENCOUNTERS Encounter Location Date Diagnosis [place] [id number] [place] [id number] Mar, [address] [id number] Feb, Tendonitis M77.9 ; Posterior right knee pain M25.561 and Strain of right knee, subsequent encounter S86.911D [place] [id number] [place] [address] [id number] Feb, Tendonitis M77.9 [place] [id number] [place] [address] [id number] December, [place] [id number] [place] [address] [id number] December, Left hand pain M79.642 [place] [id number] [place] [address] [id number] Oct, BMI 40.0-44.9, adult Z68.41 and Acute nasopharyngitis J00 [address] [id number] May, Visit for suture removal Z48.02 ; Encounter for vaccination Z23 and Encounter for immunization Z23 [place] [id number] [place] [address] [id number] December, Tooth decayed K02.9 and Tooth caries K02.[address] [id number] December, Autoimmune thyroiditis E06.3 and Acute nasopharyngitis J00 [facility] [place] [id number] [place] [address] [id number] Oct, Syncope, unspecified syncope type R55 ; Other specified hypothyroidism E03.8 and Autoimmune thyroiditis E06.3 [facility] [place] [id number] [place] [address] [id number] Oct, Muscle spasm M62.838 and Neck pain, acute M54.2 [facility] [place] [address] [id number] [id number] Jan, Hordeolum externum of right upper eyelid H00.011 [facility] [address] [place] [id number] [place] [address] [id number] December, [facility] [id number] [place] [address] [id number] December, Hypothyroid 244.9 [facility] [id number] [place] [address] 09775- 0966 Nov, [facility] [id number] [place] [address] 98836- 6336 Nov, [facility] [id number] [place] [address] 41860- 5776 Aug, [facility] [id number] [place] [address] 78370- 8846 Aug, [facility] [id number] [place] [address] [id number] Aug, [facility] [id number] [place] [address] 49026 2546 Aug, [facility] [id number] [place] [address] [id number] Aug, [facility] [id number] [place] [address] 03959- 2546 Aug, [facility] [id number] [place] [address] [id number] Jul, [facility] [place] [facility] [address] [id number], [place] [address] Jul, [facility] [address] [facility] [id number] [place] [id number] Jul, [facility] [place] [facility] [address] [id number], [place] [address] Jul, [facility] [address] [facility] [id number][place] [id number] Jun, [facility] [place] [facility] [address] [facility] [id number] [place] [address]- 67[address] Jun, [facility] [place] [facility] [address] [facility] [id number] [place] [address]- 8139 Aug, [facility] [place] [facility] [address] [facility] [id number], [place] [address] 9937 Aug, [facility] [address] [facility] [id number][place] [id number] Mar, [facility] [address] [facility] [id number], [place] [phone] Jul, [facility] [place] [facility] [address] [facility] [id number], [place] [address] 6[address] Jul, [facility] [place] [facility] [address] [facility] [id number], [place] [address] 4915 Jun, [facility] [address] [place] [id number] [id number] Jun, [facility] [place] [facility] [address] [id number], [place] [address] 46[address] Sep, [facility] [place] [facility] [address] [id number], [place] [address] 9146 Jun, [facility] [place] [facility] [address] [facility] [id number], [place] [address]- 9656 Jun, [facility] [place] [facility] [address] [facility] [id number], [place] [address]- 5894 May, [facility] [place] [facility] [address] [facility] [id number] [place] [address]- 6242 May, [facility] [address] [facility] [id number] [place] [address]- 5880 May, IMMUNIZATIONS No Known Immunizations SOCIAL HISTORY Never Assessed REASON FOR VISIT requesting a returned call PLAN OF CARE VITAL SIGNS MEDICATIONS Unknown Medications RESULTS No Results PROCEDURES No Known procedures INSTRUCTIONS MEDICATIONS ADMINISTERED No Known Medications MEDICAL (GENERAL) HISTORY Type Description Date Medical History Frequent Migraines Medical History Hypothyroidism Surgical History tubal ligation 2011 Surgical History tonsillectomy 1985
[2018-09-26 18:20] LABS: BILIRUBIN,URINE NEGATIVE (NEGATIVE); CLARITY,URINE CLEAR; COLOR,URINE YELLOW; GLUCOSE, URINE (UA) NEGATIVE (NEGATIVE); KETONES,URINE NEGATIVE (NEGATIVE); LEUKOCYTE ESTERASE ,URINE 1+ (NEGATIVE); NITRITE,URINE NEGATIVE (NEGATIVE); PH,URINE 7 (5-9); PROTEIN,URINE NEGATIVE (NEGATIVE); UROBILINOGEN,URINE NORMAL (NORMAL)
--- NOTE | 2018-09-26 18:22 | ED Abdominal Pain ---
General Chief Complaint: Abdominal/GI Problems Stated Complaint: ABD PAIN History of Present Illness Date Seen by Provider: Sep 26, 2018 Time Seen by Provider: 18:10 Initial Comments 38-year-old female presents for lower abdominal pain, most significantly on the right side. Patient reports the pain began at 0700 this morning, she was able to work all day and ate lunch at 1300. She reports the pain was intermittent throughout the day. She denies any nausea or vomiting associated with the pain. She reports a normal bowel movement this morning. She was recently seen by her primary care provider who started her on Protonix for acid reflux, she has not gotten the prescription yet. Timing/Duration: 12 Hours Allergies and Home Medications Allergies Coded Allergies: No Known Drug Allergies (Unverified , 01/25/10) Home Medications Tramadol HCl 50 Mg Tablet, 50 MG PO Q8H PRN for PAIN-MODERATE TO SEVERE Prescribed by: ALPHONSO ZAMORA on 09/26/181940 Patient Home Medication List Home Medication List Reviewed: Yes Review of Systems Review of Systems Constitutional: no symptoms reported, see HPI Gastrointestinal: See HPI, Abdominal Pain Past Fajtuxv-Vxgyor-Rmjtxd Hx Patient Social History Alcohol Use: Denies Use Recreational Drug Use: No (SMOKES 1/2 PPD) Smoking Status: Current Everyday Smoker Type Used: Cigarettes 2nd Hand Smoke Exposure: Yes Recent Foreign Travel: No Contact w/Someone Who Travel: No Recent Hopitalizations: No Immunizations Up To Date Tetanus Booster (TDap): Unknown Date of Influenza Vaccine: Jun 07, 2011 Seasonal Allergies Seasonal Allergies: Yes Past Medical History Surgeries: Yes (dnc) Adenoidectomy, Tonsillectomy, Tubal Ligation Respiratory: No Cardiac: No Neurological: Yes Headaches /Migraines 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 oz. 111.019593nx; 40.72 BMI Method:Stated General Appearance: WD/WN, no apparent distress Neck: non-tender, full range of motion, supple, normal inspection Respiratory: chest non-tender, lungs clear, normal breath sounds Cardiovascular: normal peripheral pulses, regular rate, rhythm, no edema Gastrointestinal: normal bowel sounds, soft; No distended (right lower quadrant ), No guarding, No rebound; tenderness; No hernia, No mass Neurologic/Psychiatric: no motor/sensory deficits, alert, normal mood/affect Skin: normal color, warm/dry Progress/Results/Core Measures Results/Orders Lab Results Laboratory Tests Test 09/26/18 18:02 09/26/18 18:10 Range/Units Urine Color YELLOW Urine Clarity CLEAR Urine pH 7 5-9 Urine Specific Gibson 1.010 L 1.016-1.022 Urine Protein NEGATIVE NEGATIVE Urine Glucose (UA) NEGATIVE NEGATIVE Urine Ketones NEGATIVE NEGATIVE Urine Nitrite NEGATIVE NEGATIVE Urine Bilirubin NEGATIVE NEGATIVE Urine Urobilinogen NORMAL NORMAL MG/DL Urine Leukocyte Esterase 1+ H NEGATIVE Urine RBC (Auto) NEGATIVE NEGATIVE Urine RBC RARE /HPF Urine WBC 2-5 /HPF Urine Squamous Epithelial Cells 2-5 /HPF Urine Crystals NONE /LPF Urine Bacteria TRACE /HPF Urine Casts NONE /LPF Urine Mucus NEGATIVE /LPF Urine Culture Indicated NO White Blood Count 8.1 4.3-11.0 10^3/uL Red Blood Count 4.88 4.35-5.85 10^6/uL Hemoglobin 13.9 11.5-16.0 G/DL Hematocrit 42 35-52 % Mean Corpuscular Volume 87 80-99 FL Mean Corpuscular Hemoglobin 29 25-34 PG Mean Corpuscular Hemoglobin Concent 33 32-36 G/DL Red Cell Distribution Width 15.4 H 10.0-14.5 % Platelet Count 301 130-400 10^3/uL Mean Platelet Volume 10.4 7.4-10.4 FL Neutrophils (%) (Auto) 63 42-75 % Lymphocytes (%) (Auto) 30 12-44 % Monocytes (%) (Auto) 6 0-12 % Eosinophils (%) (Auto) 1 0-10 % Basophils (%) (Auto) 0 0-10 % Neutrophils # (Auto) 5.1 1.8-7.8 X 10^3 Lymphocytes # (Auto) 2.4 1.0-4.0 X 10^3 Monocytes # (Auto) 0.5 0.0-1.0 X 10^3 Eosinophils # (Auto) 0.1 0.0-0.3 10^3/uL Basophils # (Auto) 0.0 0.0-0.1 10^3/uL Sodium Level 138 135-145 MMOL/L Potassium Level 3.8 3.6-5.0 MMOL/L Chloride Level 104 98-107 MMOL/L Carbon Dioxide Level 24 21-32 MMOL/L Anion Gap 10 5-14 MMOL/L Blood Urea Nitrogen 9 7-18 MG/DL Creatinine 0.78 0.60-1.30 MG/DL Estimat Glomerular Filtration Rate > 60 BUN/Creatinine Ratio 12 Glucose Level 78 70-105 MG/DL Calcium Level 9.0 8.5-10.1 MG/DL Corrected Calcium 8.8 8.5-10.1 MG/DL Total Bilirubin 0.2 0.1-1.0 MG/DL Aspartate Amino Transf (AST/SGOT) 19 5-34 U/L Alanine Aminotransferase (ALT/SGPT) 18 0-55 U/L Alkaline Phosphatase 86 40-136 U/L Total Protein 7.4 6.4-8.2 GM/DL Albumin 4.2 3.2-4.5 GM/DL Amylase Level 38 25-125 U/L Lipase 22 8-78 U/L My Orders Orders - ALPHONSO ZAMORA SYSTEM ENGINEER Valproic Acid (09/26/18 17:57) Ua Culture If Indicated (09/26/18 17:58) Comprehensive Metabolic Panel (09/26/18 18:15) Lipase (09/26/18 18:15) Amylase (09/26/18 18:15) Cbc With Automated Diff (09/26/18 18:15) Dicyclomine Capsule (Bentyl Capsule) (09/26/18 18:15) Fentanyl Injection (Sublimaze Injection (09/26/18 18:15) Ct Abdomen/Pelvis Wo (09/26/18 19:09) Vital Signs/I&O 09/26/18 09/26/18 17:57 20:00 Temp 98.0 98.0 Pulse 94 76 Resp 19 18 B/P (MAP) 148/76 (100) 123/86 (98) Pulse Ox 100 99 O2 Delivery Room Air Room Air Progress Progress Note : Time: 18:10 Progress Note Patient seen and evaluated. Will check labs and reevaluate. Fentanyl 50 g and Bentyl 10 mg for pain. 1849 patient continuing to have mild pain on the right lower quadrant, we'll obtain CT study of abdomen and pelvis. 1929 CT results reviewed with patient. She continues to have trace pain in the right lower quadrant. No left lower quadrant pain where the ovarian cyst is present. Discharge instructions and return precautions reviewed. Diagnostic Imaging Diagonstic Imaging: CT Plain Films/CT/US/NM/MRI: abdomen, pelvis Comments NAME: ROSALINDA WAGONER [facility] REC#: [id number] PT STATUS: REG ER : 1980 PHYSICIAN: ALPHONSO ZAMORAP ADMIT DATE: 09/26/18/ER Draft Date of Exam:09/26/18 CT ABDOMEN/PELVIS WO PROCEDURE: CT abdomen and pelvis without contrast. TECHNIQUE: Multiple contiguous axial images were obtained through the abdomen and pelvis without the use of intravenous contrast. INDICATION: Right lower quadrant pain for 12 hours, previous tubal ligation. COMPARISON STUDY: CTA chest from 2015. FINDINGS: The lung bases are clear. The liver, gallbladder, spleen, pancreas and adrenal glands are normal. No renal calculi or hydronephrosis is present. Kidneys appear normal. There is a normal appearance of the appendix. Uterus is normal. There is a 4.5 cm cyst of the left ovary. No ascites is present. There are no hernias. No inflammatory or obstructive changes are present in the bowel loops. Bone windows demonstrate mild degenerative changes. IMPRESSION: 1. There is a 4.5 cm left ovarian cyst. 2. Mild degenerative changes present in the bowel. Dictated on workstation # [id number] Dict: 09/26/181923 Trans: 09/26/181930 [id number] Interpreted by: KELBY FORD MD Electronically signed by: Reviewed: Reviewed by Me Departure Impression Primary Impression: Right lower quadrant abdominal pain Additional Impression: Left ovarian cyst Disposition: HOME, SELF-CARE Condition: Improved Departure-Patient Inst. Decision time for Depature: 19:30 Referrals: [facility] (PCP/Family) Primary Care Physician Patient Instructions: Acute Abdomen (Belly Pain), Adult (DC), Ovarian Cyst (DC) Add. Discharge Instructions: Follow-up with your primary care provider for referral to gynecology. You may alternate between Tylenol 650 mg and ibuprofen 600 mg every 4 hours for pain. If pain is not tolerated with Tylenol and ibuprofen, he may take the tramadol every 8 hours. Return to emergency department for increased abdominal pain, All discharge instructions reviewed with patient and/or family. Voiced understanding. Scripts Tramadol HCl (Tramadol HCl) 50 Mg Tablet 50 MG PO Q8H PRN for PAIN-MODERATE TO SEVERE, #20 TAB 0 Refills Prov: ALPHONSO ZAMORA 09/26/18 ALPHONSO ZAMORA Sep 26, 2018 18:21
[2018-09-26 18:24] LABS: BASOPHILS % (AUTO) 0 % (0-10); EOSINOPHILS # (AUTO) 0.1 10^3/uL (0.0-0.3); EOSINOPHILS % (AUTO) 1 % (0-10); HEMATOCRIT 42 % (35-52); HEMOGLOBIN 13.9 G/DL (11.5-16.0); LYMPHOCYTES # (AUTO) 2.4 X 10^3 (1.0-4.0); LYMPHOCYTES % (AUTO) 30 % (12-44); MEAN CORPUSCULAR HEMOGLOBIN 29 PG (25-34); MEAN CORPUSCULAR HGB CONC 33 G/DL (32-36); MEAN CORPUSCULAR VOLUME 87 FL (80-99); MEAN PLATELET VOLUME 10.4 FL (7.4-10.4); MONOCYTES # (AUTO) 0.5 X 10^3 (0.0-1.0); MONOCYTES % (AUTO) 6 % (0-12); NEUTROPHILS # (AUTO) 5.1 X 10^3 (1.8-7.8); NEUTROPHILS % (AUTO) 63 % (42-75); PLATELET COUNT 301 10^3/uL (130-400); RED CELL DISTRIBUTION WIDTH 15.4 % (10.0-14.5); WHITE BLOOD COUNT 8.1 10^3/uL (4.3-11.0)
[2018-09-26 18:28] LABS: BACTERIA,URINE TRACE /HPF; RBC,URINE RARE /HPF
[2018-09-26 18:41] LABS: ALANINE AMINOTRANSFERASE 18 U/L (0-55); ALBUMIN 4.2 GM/DL (3.2-4.5); ALKALINE PHOSPHATASE 86 U/L (40-136); AMYLASE 38 U/L (25-125); BILIRUBIN,TOTAL 0.2 MG/DL (0.1-1.0); BUN/CREATININE RATIO 12; CARBON DIOXIDE 24 MMOL/L (21-32); CHLORIDE 104 MMOL/L (98-107); CREATININE SERUM 0.78 MG/DL (0.60-1.30); GFR ESTIMATED > 60; GLUCOSE 78 MG/DL (70-105); LIPASE 22 U/L (8-78); POTASSIUM 3.8 MMOL/L (3.6-5.0); SODIUM 138 MMOL/L (135-145); TOTAL PROTEIN 7.4 GM/DL (6.4-8.2)
--- NOTE | 2018-09-26 18:51 | NUR ---
ASSUMED CARE OF PT @ THIS TIME.
--- NOTE | 2018-09-26 19:31 | Diagnostic Imaging Report ---
PROCEDURE: CT abdomen and pelvis without contrast. TECHNIQUE: Multiple contiguous axial images were obtained through the abdomen and pelvis without the use of intravenous contrast. INDICATION: Right lower quadrant pain for 12 hours, previous tubal ligation. COMPARISON STUDY: CTA chest from 2015. FINDINGS: The lung bases are clear. The liver, gallbladder, spleen, pancreas and adrenal glands are normal. No renal calculi or hydronephrosis is present. Kidneys appear normal. There is a normal appearance of the appendix. Uterus is normal. There is a 4.5 cm cyst of the left ovary. No ascites is present. There are no hernias. No inflammatory or obstructive changes are present in the bowel loops. Bone windows demonstrate mild degenerative changes. IMPRESSION: 1. There is a 4.5 cm left ovarian cyst. 2. Mild degenerative changes present in the spine. Dictated by: Dictated on workstation # [id number]
[2018-09-26] MEDS ORDERED: TRAM50TA2 PO (19:41)
[2018-09-26 20:00] VITALS: BP 123/86
== END 2018-09-26 20:00 | disposition home or self-care (01) ==
LOC: EDUNIT# 17:52 → ER 17:56
DX: N83.202 Unspecified ovarian cyst, left side (principal); G43.909 Migraine, unspecified, not intractable, without status migrainosus; E66.9 Obesity, unspecified; E03.9 Hypothyroidism, unspecified; F17.210 Nicotine dependence, cigarettes, uncomplicated; Z68.41 Body mass index [BMI] 40.0-44.9, adult; Z98.51 Tubal ligation status; Z90.89 Acquired absence of other organs
CPT/HCPCS: 36415; 74176; 80053; 81000; 82150; 83690; 85025

== ENCOUNTER 2020-01-10 15:17 | Emergency (ER) | payer MEDICAID ==
[~2020-01-10] VITALS: Ht 170.1 cm; Wt 119.5 kg
[~2020-01-10 15:17] MED LIST changes: +TRM50T PO
[2020-01-10] MEDS ORDERED: NS IV 1000 ML 1,000 ML IV SCH (15:32)
[2020-01-10] MEDS ORDERED: fentaNYL INJECTION 100 MCG/2 ML AMP IVP STA (15:32)
--- NOTE | 2020-01-10 15:32 | ED Abdominal Pain ---
General Stated Complaint: ABD PAIN Source of Information: Patient Exam Limitations: No Limitations (BYRON HOPE DO) History of Present Illness Date Seen by Provider: Jan 10, 2020 Time Seen by Provider: 15:32 Initial Comments 39-year-old female presents with right lower quadrant pain. Patient presented to her primary care office , who is concerned about appendicitis and sent her here. Patient reports the pains going on for about 3 days and worsening. Patient reports it hurts if she walks. She denies any nausea or vomiting. She denies any urinary symptoms. She reports she hasn't had anything to eat today. (BYRON HOPE DO) Allergies and Home Medications Allergies Coded Allergies: No Known Drug Allergies (Unverified , 01/25/10) Home Medications Tramadol HCl 50 Mg Tablet, 50 MG PO Q8H PRN for PAIN-MODERATE TO SEVERE Prescribed by: ALPHONSO ZAMORA on 09/26/181940 Patient Home Medication List Home Medication List Reviewed: Yes (BYRON HOPE DO) Review of Systems Review of Systems Constitutional: No chills, No fever Respiratory: Denies Cough, Denies Shortness of Air Cardiovascular: Denies Chest Pain Gastrointestinal: Abdominal Pain; Denies Nausea, Denies Vomiting Genitourinary: Denies Burning Skin: no symptoms reported Psychiatric/Neurological: No Symptoms Reported Endocrine: No Symptoms Reported (BYRON HOPE DO) Past Zzpchfi-Wxdttu-Pebrea Hx Past Med/Social Hx: Reviewed Nursing Past Med/Soc Hx (BYRON HOPE DO) Patient Social History Type Used: Cigarettes 2nd Hand Smoke Exposure: Yes Recent Foreign Travel: No Contact w/Someone Who Travel: No Recent Hopitalizations: No (BYRON HOPE DO) Immunizations Up To Date Tetanus Booster (TDap): Unknown Date of Influenza Vaccine: Jun 07, 2011 (BYRON HOPE DO) Seasonal Allergies Seasonal Allergies: Yes (BYRON HOPE DO) Past Medical History Surgeries: Yes (dnc) Adenoidectomy, Tonsillectomy, Tubal Ligation Respiratory: No Cardiac: No Neurological: Yes Headaches /Migraines Reproductive Disorders: No 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 oz. 117.651398ps; 40.72 BMI Method:Stated General Appearance: mild distress Respiratory: lungs clear, normal breath sounds Cardiovascular: normal peripheral pulses, regular rate, rhythm Gastrointestinal: soft, guarding, rebound, tenderness Extremities: normal range of motion Neurologic/Psychiatric: alert, normal mood/affect, oriented x 3 Skin: normal color, warm/dry (HOPE,BYRON L DO) Progress/Results/Core Measures Results/Orders Lab Results Laboratory Tests Test 01/10/20 15:40 01/10/20 18:00 Range/Units White Blood Count 10.3 4.3-11.0 10^3/uL Red Blood Count 4.40 4.35-5.85 10^6/uL Hemoglobin 11.2 L 11.5-16.0 G/DL Hematocrit 35 35-52 % Mean Corpuscular Volume 80 80-99 FL Mean Corpuscular Hemoglobin 25 25-34 PG Mean Corpuscular Hemoglobin Concent 32 32-36 G/DL Red Cell Distribution Width 19.5 H 10.0-14.5 % Platelet Count 430 H 130-400 10^3/uL Mean Platelet Volume 9.9 7.4-10.4 FL Neutrophils (%) (Auto) 71 42-75 % Lymphocytes (%) (Auto) 23 12-44 % Monocytes (%) (Auto) 5 0-12 % Eosinophils (%) (Auto) 2 0-10 % Basophils (%) (Auto) 0 0-10 % Neutrophils # (Auto) 7.3 1.8-7.8 X 10^3 Lymphocytes # (Auto) 2.3 1.0-4.0 X 10^3 Monocytes # (Auto) 0.5 0.0-1.0 X 10^3 Eosinophils # (Auto) 0.2 0.0-0.3 10^3/uL Basophils # (Auto) 0.0 0.0-0.1 10^3/uL Sodium Level 138 135-145 MMOL/L Potassium Level 3.7 3.6-5.0 MMOL/L Chloride Level 108 H 98-107 MMOL/L Carbon Dioxide Level 21 21-32 MMOL/L Anion Gap 9 5-14 MMOL/L Blood Urea Nitrogen 7 7-18 MG/DL Creatinine 0.75 0.60-1.30 MG/DL Estimat Glomerular Filtration Rate > 60 BUN/Creatinine Ratio 9 Glucose Level 136 H 70-105 MG/DL Calcium Level 8.8 8.5-10.1 MG/DL Corrected Calcium 9.0 8.5-10.1 MG/DL Total Bilirubin 0.2 0.1-1.0 MG/DL Aspartate Amino Transf (AST/SGOT) 13 5-34 U/L Alanine Aminotransferase (ALT/SGPT) 14 0-55 U/L Alkaline Phosphatase 100 40-136 U/L C-Reactive Protein High Sensitivity 1.10 H 0.00-0.50 MG/DL Total Protein 6.9 6.4-8.2 GM/DL Albumin 3.8 3.2-4.5 GM/DL Urine Color YELLOW Urine Clarity CLEAR Urine pH 6.0 5-9 Urine Specific [place] 1.010 L 1.016-1.022 Urine Protein NEGATIVE NEGATIVE Urine Glucose (UA) NEGATIVE NEGATIVE Urine Ketones NEGATIVE NEGATIVE Urine Nitrite NEGATIVE NEGATIVE Urine Bilirubin NEGATIVE NEGATIVE Urine Urobilinogen 0.2 < = 1.0 MG/DL Urine Leukocyte Esterase NEGATIVE NEGATIVE Urine RBC (Auto) NEGATIVE NEGATIVE Urine RBC NONE /HPF Urine WBC NONE /HPF Urine Squamous Epithelial Cells 0-2 /HPF Urine Crystals NONE /LPF Urine Bacteria TRACE /HPF Urine Casts NONE /LPF Urine Mucus NEGATIVE /LPF Urine Culture Indicated NO Urine Test NEGATIVE NEGATIVE (CHRISSY REYNA) My Orders Orders - CHRISSY REYNA Hcg,Qualitative Urine (01/10/20 18:10) (CHRISSY REYNA) Medications Given in ED Current Medications Medications Dose Ordered Sig/Alvaro Route Start Time Stop Time Status Last Admin Dose Admin Iohexol 100 ml ONCE ONCE IV 01/10/20 16:15 01/10/20 16:18 DC 01/10/20 17:15 100 ML Sodium Chloride 10 ml NEEDED PRN IV 01/10/20 16:15 01/10/20 17:15 10 ML Sodium Chloride 100 ml ONCE ONCE IV 01/10/20 16:15 01/10/20 16:18 DC 01/10/20 17:15 80 ML (CHRISSY REYNA) Vital Signs/I&O 01/10/20 15:26 Temp 36.8 Pulse 97 Resp 18 B/P (MAP) 131/80 (97) Pulse Ox 99 O2 Delivery Room Air (CHRISSY REYNA) Progress Progress Note #1: Time: 18:12 Progress Note Saw and Assume Care Of the Patient at Shift Change. I Agree with the above Documented History and Physical Exam by Dr. Hope. Plan to get a urinalysis. We discussed STD testing and she declined. She has no history of STDs but she is sexually active without discharge, dyspareunia or dysuria. We'll get a urine hCG to rule out ectopic. She's been using ibuprofen with little success. She seems to be much more comfortable after the dose of fentanyl given by the previous provider. She says this happened about 6 months ago and her provider thought she had some kind of colitis. The result spontaneously and they were going to set her up for colonoscopy as soon as the COVID-19 crisis past and they could get elective procedures scheduled. She is mildly tender in the right lower quadrant but has a nonsurgical, non-mesenteric exam at this time. She has no rebound tenderness over McBurney's point. She has few but regular bowel sounds. She was given more than a liter fluids before she could finally produce urine by straight catheter only. She did have quite a bit of urine so perhaps she is retaining for some reason? If she was dehydrated I would expect constipation could also play a role. We will encourage her to clean out her bowels and follow-up Monday or Monday with primary care with return precautions if her urine is unremarkable. Progress Note #2: Time: 19:23 Progress Note Reexamination still unremarkable. No mesenteric abdomen. Aseptic vital signs. We'll set her up for an outpatient ultrasound. (CHRISSY REYNA) Diagnostic Imaging Diagonstic Imaging: CT Comments [facility]. [place], [place] NAME: DENIZLLUVIAR[facility]IN[facility] L [facility] REC#: [id number] PT STATUS: REG ER : 1980 PHYSICIAN: BYRON HOPE DO ADMIT DATE: 01/10/20/ER Draft Date of Exam:01/10/20 CT ABD/PELV W (APPENDICITIS) PROCEDURE: CT abdomen and pelvis with contrast, rule out appendicitis. TECHNIQUE: Multiple contiguous axial images were obtained through the abdomen and pelvis after the administration of intravenous contrast. All CT scans use one or more of the following dose optimizing techniques: automated exposure control, MA and/or KvP adjustment based on a patient size and exam type, or iterative reconstruction. INDICATION: Lower abdominal pain. COMPARISON: Comparison is made with a study from 09/26/2018. FINDINGS: The liver, gallbladder and bile ducts are normal. The spleen, pancreas and adrenals are normal. There is a subcentimeter cyst present in the right kidney. The left kidney is normal. Bladder is normal. There is no pelvic mass. The appendix is normal. No acute bowel abnormality is seen. There is no bony abnormality. IMPRESSION: No acute abnormality is seen. The left ovarian cyst seen on the 09/26/2018 study has resolved. (BYRON HOPE DO) Departure Impression Primary Impression: Right lower quadrant abdominal pain Disposition: HOME, SELF-CARE Condition: Improved Departure-Patient Inst. Decision time for Depature: 19:25 (CHRISSY REYNA) Referrals: [facility] (PCP) Primary Care Physician SANTI SCOTT DO Patient Instructions: Acute Pelvic Pain (DC) Add. Discharge Instructions: While we are not certain what is causing your discomfort in your pelvis there doesn't seem to be anything emergent at this time. This gives us time to have you follow-up Monday or Monday with your primary care doctor. Please use the outpatient order form to get set up for an ultrasound of your pelvis to look for ovarian cysts or other explanations. You should also call Dr. Scott, General Surgery and get scheduled for colonoscopy. If you develop fever, intractable pain or nausea then please return to the ER for further evaluation. You may use Tylenol 1000 mg every 8 hours as necessary for pain. You may use ibuprofen 800 mg every 8 hours as necessary for pain. You may use ondansetron one tablet every 6 hours under the tongue as necessary for nausea. Make sure you are drinking plenty of fluids. Scripts Ondansetron (Ondansetron Odt) 4 Mg Tab.rapdis 4 MG PO Q6H PRN for NAUSEA/VOMITING, #8 TAB 0 Refills Prov: CHRISSY REYNA 01/10/20 BYRON HOPE DO Jan 10, 2020 15:32 CHRISSY REYNA Jan 10, 2020 18:16
[2020-01-10 15:46] LABS: BASOPHILS % (AUTO) 0 % (0-10); EOSINOPHILS # (AUTO) 0.2 10^3/uL (0.0-0.3); EOSINOPHILS % (AUTO) 2 % (0-10); HEMATOCRIT 35 % (35-52); HEMOGLOBIN 11.2 G/DL (11.5-16.0); LYMPHOCYTES # (AUTO) 2.3 X 10^3 (1.0-4.0); LYMPHOCYTES % (AUTO) 23 % (12-44); MEAN CORPUSCULAR HGB CONC 32 G/DL (32-36); MEAN CORPUSCULAR VOLUME 80 FL (80-99); MEAN PLATELET VOLUME 9.9 FL (7.4-10.4); MONOCYTES # (AUTO) 0.5 X 10^3 (0.0-1.0); MONOCYTES % (AUTO) 5 % (0-12); NEUTROPHILS # (AUTO) 7.3 X 10^3 (1.8-7.8); NEUTROPHILS % (AUTO) 71 % (42-75); PLATELET COUNT 430 10^3/uL (130-400); RED CELL DISTRIBUTION WIDTH 19.5 % (10.0-14.5); WHITE BLOOD COUNT 10.3 10^3/uL (4.3-11.0)
[2020-01-10 15:47] LABS: MEAN CORPUSCULAR HEMOGLOBIN 25 PG (25-34)
[2020-01-10 16:08] LABS: ALBUMIN 3.8 GM/DL (3.2-4.5)
[2020-01-10 16:09] LABS: CHLORIDE 108 MMOL/L (98-107); POTASSIUM 3.7 MMOL/L (3.6-5.0); SODIUM 138 MMOL/L (135-145)
[2020-01-10 16:10] LABS: CALCIUM 8.8 MG/DL (8.5-10.1)
[2020-01-10 16:11] LABS: GLUCOSE 136 MG/DL (70-105); TOTAL PROTEIN 6.9 GM/DL (6.4-8.2)
[2020-01-10 16:12] LABS: CARBON DIOXIDE 21 MMOL/L (21-32)
[2020-01-10 16:13] LABS: BILIRUBIN,TOTAL 0.2 MG/DL (0.1-1.0)
[2020-01-10 16:14] LABS: ALKALINE PHOSPHATASE 100 U/L (40-136)
[2020-01-10 16:15] LABS: CREATININE SERUM 0.75 MG/DL (0.60-1.30); GFR ESTIMATED > 60
[2020-01-10] MEDS ORDERED: HOLD METFORMIN - RECEIVED CONTRAST 20 ML VIAL IV SCH (16:15)
[2020-01-10] MEDS ORDERED: NS 100 ML (IVPB) BAG IV ONE (16:15)
[2020-01-10] MEDS ORDERED: IOHEXOL 350 MG/ML 100 ML (OMNIPAQUE 350) VIAL IV ONE (16:15)
[2020-01-10] MEDS ORDERED: CATHETER FLUSH 10 ML SYR IV PRN (16:15)
[2020-01-10 16:16] LABS: BUN/CREATININE RATIO 9
[2020-01-10 16:17] LABS: ALANINE AMINOTRANSFERASE 14 U/L (0-55)
--- NOTE | 2020-01-10 16:45 | NUR ---
Pt's ID not flowing due to pt's arm contracted. Pt given pillow to prop under arm. Fluids flowing freely now. Will continue to monitor.
--- OUTSIDE RECORDS SUMMARY | 2020-01-10 17:15 | XMS REPORT ---
Author Author Mirlande QURESHI Organization [facility] Address [address] [place] [address] Care Team Providers Care Shipping Checker Name Role Phone JAISON QURESHI Unavailable PROBLEMS Type Condition ICD9-CM Code [id number] Code Onset Dates Condition S tatus SNOMED Code Problem Moderate episode of recurrent major depressive disorder F33.1 Active 987393759 Problem Colitis K52.9 Active 06132280 Problem Autoimmune thyroiditis E06.3 Active 44580918 Problem Other specified hypothyroidism E03.8 Active 845147461 ALLERGIES No Information ENCOUNTERS Encounter Location Date Diagnosis [facility] [address] [id number] [address] [place] [id number] December, Dental examination Z01.20 [facility] [id number] [place] [address], [place] [id number] December, [place] [id number] [place] [address], [place] [id number] Nov, Finger pain M79.646 and Morbid obesity E 66.01 [place] [place] [id number] [place] [address], [place] [id number] Oct, Morbid obesity E66.01 and Colitis K52.[address] [id number] [place], [place] [id number] Oct, [facility] [address] [id number] [place] [id number] Sep, [facility] [address] [id number] [place] [id number] Sep, [facility] [address] [id number] [place] [id number] Sep, Cyst of left ovary N83.202 and BMI 40.0- 44.9, adult Z68.41 [facility] [address] [facility] [id number] [place] [id number] Aug, Acute pain of right knee M25.561 and BMI 40.0-44.9, adult Z68.41 [facility] [id number] [place] [address], [place] [id number] May, Myalgia M79.10 [facility] [address] [id number] [place] [id number] May, Other specified hypothyroidism E03.8 and Moderate episode of recurrent major depressive disorder F33.1 [facility] [id number] [place] [address], [place] [id number] Feb, Tendonitis M77.9 ; Posterior right knee pain M25.561 and Strain of right knee, subsequent encounter S86.911D [facility] [id number] [place] [address], [place] [id number] Feb, Tendonitis M77.9 [facility] [address], [place] [id number] December, [facility] [id number] [place] [address], [place] [id number] December, Left hand pain M79.642 [place] [address], [place] [id number] Oct, BMI 40.0-44.9, adult Z68.41 and Acute na sopharyngitis J00 [place] [id number] [place] [address], [place] [id number] May, Visit for suture removal Z48.02 ; Encoun ter for vaccination Z23 and Encounter for immunization Z23 [facility] [address] [facility] [id number] [place], [place] [id number] December, Tooth decayed K02.9 and Tooth caries K02 .9 [place] [address] [id number] [place] [id number] December, Autoimmune thyroiditis E06.3 and Acute n asopharyngitis J00 [facility] [address] [id number] [place] [id number] Oct, Syncope, unspecified syncope type R55 ; Other specified hypothyroidism E03.8 and Autoimmune thyroiditis E06.3 [facility] [address] [facility] [id number] [place] [id number] Oct, Muscle spasm M62.838 and Neck pain, acut e M54.2 [facility] [address] [facility] [id number] [id number] Jan, Hordeolum externum of right upper eyelid H00.011 [facility] [address] [facility] [id number] [place] [id number] December, [facility] [address] [facility] [id number] [place] [id number] December, Hypothyroid 244.9 [facility] [address] [facility] [id number] [address] [place] [phone] Nov, [facility] [address] [facility] [id number] [address] [place] [phone] Nov, [facility] [address] [facility] [id number] [address] [place] [phone] Aug, [facility] [address] [facility] [id number] [address] [place] [phone] Aug, [facility] [address] [facility] [id number] [place] [id number] Aug, [facility] [address] [facility] [id number] [address] [place] [id number] Aug, [facility] [address] [facility] [id number] [place] [id number] Aug, [facility] [address] [facility] [id number] [address] [place] [phone] Aug, [facility] [address] [facility] [id number] [place] [id number] Jul, [facility] [address] [facility] [id number] [address] [place] [id number] Jul, [facility] [address] [facility] [id number] [place] [id number] Jul, [facility] [address] [id number] [address] [place] [id number] Jul, [facility] [place] [address] [id number] [place] [id number] Jun, [facility] [address] [id number] [address] [place] [address], [place] [phone] Jun, [facility] [address] [id number] [address] [place] [address], [place] [phone] Aug, [facility] [address] [id number] [address] [place] [address], [place] [phone] Aug, [facility] [place] [address] [id number] [place] [id number] Mar, [facility] [place] [address] [id number] [place] [id number] Jul, [facility] [address] [id number] [address] [place] [address], [place] [phone] Jul, [facility] [address] [id number] [address] [place] [phone] Jun, [facility] [place] [address] [id number] [place] [id number] Jun, [facility] [address] [id number] [address] [place] [phone] Sep, [facility] [address] [id number] [address] [place] [phone] Jun, [facility] [address] [id number] [address] [place] [phone] Jun, [facility] [address] [id number] [address] [place] [address], [place] [phone] May, [facility] [address] [id number] [address] [place] [address], [place] [phone] May, [facility] [address] [id number] [address] [place] [phone] May, IMMUNIZATIONS No Known Immunizations SOCIAL HISTORY Never Assessed REASON FOR VISIT PLAN OF CARE VITAL SIGNS Height 68 in 2014-07-21 Weight 258.4 lbs 2014-07-21 Temperature 96.9 degrees Fahrenheit 2014-07-21 Heart Rate 72 bpm 2014-07-21 Respiratory Rate 16 2014-07-21 Blood pressure systolic 122 mmHg 2014-07-21 Blood pressure diastolic 76 mmHg 2014-07-21 MEDICATIONS Unknown Medications RESULTS No Results PROCEDURES No Known procedures INSTRUCTIONS MEDICATIONS ADMINISTERED No Known Medications MEDICAL (GENERAL) HISTORY Type Description Date Medical History Frequent Migraines Medical History Hypothyroidism Medical History HX of Colitis Surgical History tubal ligation 2011 Surgical History tonsillectomy 1985 Surgical History dilatation and curettage 2009 Hospitalization History [facility] ER for abd pain 09/26/18
--- OUTSIDE RECORDS SUMMARY | 2020-01-10 17:15 | XMS REPORT ---
Author Author Mirlande QURESHI [facility] Address [address] [place] [address] Care Team Providers Care Lumber Marker Name Role Phone JAISON QURESHI Unavailable PROBLEMS Type Condition ICD9-CM Code JAM69-JC Code Onset Dates Condition S tatus SNOMED Code Problem Moderate episode of recurrent major depressive disorder F33.1 Active 029508741 Problem Colitis K52.9 Active 14437324 Problem Autoimmune thyroiditis E06.3 Active 56629053 Problem Other specified hypothyroidism E03.8 Active 849676860 ALLERGIES No Known Allergies ENCOUNTERS Encounter Location Date Diagnosis [facility] [address] [id number] [address] [id number] December, Dental examination Z01.20 [facility] [address] [id number] [place] [id number] December, [place] [address] [id number] [place] [id number] Nov, Finger pain M79.646 and Morbid obesity E 66.01 [place] [address] [place] [id number] [place] [address], [place] [id number] Oct, Morbid obesity E66.01 and Colitis K52.9 [place] [address] [id number] [place] [id number] Oct, [facility] [address] [id number] [place] [id number] Sep, [facility] [id number] [place] [address], [place] [id number] Sep, [facility] [address] [id number] [place] [id number] Sep, Cyst of left ovary N83.202 and BMI 40.0- 44.9, adult Z68.41 [facility] [address] [facility] [id number] [place] [id number] Aug, Acute pain of right knee M25.561 and BMI 40.0-44.9, adult Z68.41 [place] [address] [place] [id number] [place] [address], [place] [id number] May, Myalgia M79.10 [place] [address] [place] [id number] [place] [address], [place] [id number] May, Other specified hypothyroidism E03.8 and Moderate episode of recurrent major depressive disorder F33.1 [place] [address] [place] [id number] [place] [address], [place] [id number] Feb, Tendonitis M77.9 ; Posterior right knee pain M25.561 and Strain of right knee, subsequent encounter S86.911D [facility] [id number] [place] [address], [place] [id number] Feb, Tendonitis M77.9 [place] [id number] [place] [address], [place] [id number] December, [facility] [id number] [place] [address], [place] [id number] December, Left hand pain M79.642 [place] [id number] [place] [address], [place] [id number] Oct, BMI 40.0-44.9, adult Z68.41 and Acute na sopharyngitis J00 [place] [id number] [place] [address], [place] [id number] May, Visit for suture removal Z48.02 ; Encoun ter for vaccination Z23 and Encounter for immunization Z23 [place] [address] [facility] [id number] [place] [id number] December, Tooth decayed K02.9 and Tooth caries K02 .9 [place] [id number] [place] [address], [place] [id number] December, Autoimmune thyroiditis E06.3 and Acute n asopharyngitis J00 [place] [id number] [place] [address], [place] [id number] Oct, Syncope, unspecified syncope type R55 ; Other specified hypothyroidism E03.8 and Autoimmune thyroiditis E06.3 [facility] [place] [address] [facility] [id number] [place] [id number] Oct, Muscle spasm M62.838 and Neck pain, acut e M54.2 [facility] [address] [address] [id number] [id number] Jan, Hordeolum externum of right upper eyelid H00.011 [facility] [place] [address] [id number] [place] [id number] December, [facility] [place] [address] [facility] [id number] [place] [id number] December, Hypothyroid 244.9 [facility] [place] [facility] [address] [facility] [id number] [address] [place] [phone] Nov, [facility] [address] [facility] [id number] [address] [place] [address] Nov, [facility] [address] [facility] [id number] [address] [place] [address] Aug, [facility] [address] [facility] [id number] [address] [place] [phone] Aug, [facility] [place] [address] [facility] [id number] [place] [id number] Aug, [facility] [address] [facility] [id number] [address] [place] [phone] Aug, [facility] [place] [address] [facility] [id number] [place] [id number] Aug, [facility] [address] [facility] [id number] [address] [place] [phone] Aug, [facility] [place] [address] [facility] [id number] [place] [id number] Jul, [facility] [address] [facility] [id number] [address] [place] [phone] Jul, [facility] [place] [address] [facility] [id number] [place] [id number] Jul, [facility] [address] [id number] [address] [place] [address], [place] [address] Jul, [facility] [place] [address] [id number] [place] [id number] Jun, [facility] [address] [id number] [address] [place] [address], [place] [address] Jun, [facility] [address] [id number] [address] [place] [address], [place] [address] Aug, [facility] [address] [id number] [address] [place] [address], [place] [address] Aug, [facility] [place] [address] [id number] [place] [id number] Mar, [facility] [place] [address] [id number] [place] [id number] Jul, [facility] [address] [id number] [address] [place] [address], [place] [address] Jul, [facility] [address] [id number] [address] [place] [address], [place] [address] Jun, [facility] [place] [address] [id number] [place] [id number] Jun, [facility] [address] [id number] [address] [place] [phone] Sep, [facility] [address] [id number] [address] [place] [address], [place] [address] Jun, [facility] [address] [id number] [address] [place] [address] Jun, [facility] [address] [id number] [address] [place] [address], [place] [address] May, [facility] [address] [id number] [address] [place] [address], [place] [address] May, [facility] [address] [id number] [address] [place] [phone] May, IMMUNIZATIONS No Known Immunizations SOCIAL HISTORY Never Assessed REASON FOR VISIT Abdominal pain, went to ER [facility] last night, states she has a cyst on her ovary James GONZALEZ PLAN OF CARE Activity Details Follow Up prn 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 VITAL SIGNS Height 68 in 2018-09-27 Weight 267.4 lbs 2018-09-27 Temperature 97.4 degrees Fahrenheit 2018-09-27 Heart Rate 100 bpm 2018-09-27 Respiratory Rate 18 2018-09-27 BMI 40.65 kg/m2 2018-09-27 Blood pressure systolic 120 mmHg 2018-09-27 Blood pressure diastolic 72 mmHg 2018-09-27 MEDICATIONS Medication Instructions Dosage Frequency Start Date End Date Duration S tatus Protonix 40 MG Orally Once a day 1 tablet 24h Active Ibuprofen 800 MG Orally Three times a day 1 tablet with food or milk as needed 8h Active Sertraline HCl 25 MG Orally Once a day 1 tablet x 2 wk then 2 ta b qd 24h May, Active Tramadol HCl 50 MG Orally 3 times a day 1 tablet as needed 8h 2018 Active Levothyroxine Sodium 25 mcg Orally Once a day 1 tablet 24h 11 December, 015 Active Albuterol Sulfate HFA 108 (90 Base) mcg/act by inhalat ion route every 4-6 hours as needed 2 puffs as needed Active Augmentin 875-125 MG Orally every 12 hrs 1 tablet 12h Sep, 10 day(s) Active Cyclobenzaprine HCl 5 mg Orally Three times a day 1 tablet as neede d 8h May, Active RESULTS No Results PROCEDURES No Known procedures INSTRUCTIONS MEDICATIONS ADMINISTERED No Known Medications MEDICAL (GENERAL) HISTORY Type Description Date Medical History Frequent Migraines Medical History Hypothyroidism Medical History HX of Colitis Surgical History tubal ligation 2011 Surgical History tonsillectomy 1985 Surgical History dilatation and curettage 2009 Hospitalization History [facility] for abd pain 09/26/18
--- OUTSIDE RECORDS SUMMARY | 2020-01-10 17:15 | XMS REPORT ---
Author Author Mirlande QURESHI Organization [address] Address [address] [place] [address] Care Team Providers Care Engravings Polisher Name Role Phone JAISON QURESHI Unavailable PROBLEMS Type Condition ICD9-CM Code QII58-DY Code Onset Dates Condition S tatus SNOMED Code Problem Colitis K52.9 Active 03535506 Problem Anxiety F41.9 Active 79809016 Problem Autoimmune thyroiditis E06.3 Active 01027378 Problem Other specified hypothyroidism E03.8 Active 121649452 Problem Moderate episode of recurrent major depressive disorder F33.1 Active 283858296 ALLERGIES No Information ENCOUNTERS Encounter Location Date Diagnosis [id number] [address] 08 Nov, 2019 Finger pain M79.[address] [id number] [address] 07 Nov, 2019 Colitis K52.[address] [facility] [id number] [address] 31 Oct, 2019 Moderate episode of recurrent major depr essive disorder F33.1 [place] [id number] [address] Oct, Moderate episode of recurrent major depr essive disorder F33.1 ; Anxiety F41.9 and Abscess L02.[address] [id number] [address] Sep, Autoimmune thyroiditis E06.3 and Other s pecified hypothyroidism E03.[address] [facility] [address] [id number] [address] Sep, Influenza A J10.1 and Elevated temperatu re R50.[address] [id number] [place] [address] Sep, Viral illness B34.9 and Elevated tempera ture R50.9 [facility] [address] [id number] [address] [place] [id number] December, Dental examination Z01.20 [facility] [address] [id number] [place] [id number] December, [facility] [address] [id number] [place] [id number] Nov, Finger pain M79.646 and Morbid obesity E 66.01 [facility] [address] [id number] [place] [id number] Oct, Morbid obesity E66.01 and Colitis K52.9 [facility] [address] [id number] [place] [id number] Oct, [facility] [place] [address] [id number] [place] [id number] Sep, [facility] [address] [id number] [place] [id number] Sep, [facility] [address] [id number] [place] [id number] Sep, Cyst of left ovary N83.202 and BMI 40.0- 44.9, adult Z68.41 [facility] [address] [id number] [place] [id number] Aug, Acute pain of right knee M25.561 and BMI 40.0-44.9, adult Z68.41 [facility] [address] [id number] [place] [id number] May, Myalgia M79.10 [facility] [address] [id number] [place] [id number] May, Other specified hypothyroidism E03.8 and Moderate episode of recurrent major depressive disorder F33.1 [facility] [address] [id number] [place] [id number] Binu, 2018 Tendonitis M77.9 ; Posterior right knee pain M25.561 and Strain of right knee, subsequent encounter S86.911D [facility] [address] [facility] [id number] [place] [id number] Feb, Tendonitis M77.9 [facility] [address] [facility] [id number] [place], [place] [id number] December, [facility] [address] [facility] [id number] [place] [id number] December, Left hand pain M79.642 [facility] [address] [facility] [id number] [place] [id number] Oct, BMI 40.0-44.9, adult Z68.41 and Acute na sopharyngitis J00 [place] [address] [facility] [id number] [place] [id number] May, Visit for suture removal Z48.02 ; Encoun ter for vaccination Z23 and Encounter for immunization Z23 [place] [address] [place] [id number] [place] [address], [place] [id number] December, Tooth decayed K02.9 and Tooth caries K02 .9 [facility] [address] [facility] [id number] [place] [id number] December, Autoimmune thyroiditis E06.3 and Acute n asopharyngitis J00 [facility] [address] [facility] [id number] [place] [id number] 14 Oct, 2016 Syncope, unspecified syncope type R55 ; Other specified hypothyroidism E03.8 and Autoimmune thyroiditis E06.3 [facility] [address] [facility] [id number] [place] [id number] Oct, Muscle spasm M62.838 and Neck pain, acut e M54.2 [place] [address] [address] [id number] [id number] Jan, Hordeolum externum of right upper eyelid H00.011 [facility] [address] [facility] [id number] [place] [id number] December, [facility] [address] [facility] [id number] [place] [id number] December, Hypothyroid 244.9 [facility] [address] [id number] [address] [place] [address], [place] [address] Nov, [facility] [address] [id number] [address] [place] [address] Nov, [facility] [address] [id number] [address] [place] [address], [place] [address] Aug, [facility] [address] [id number] [address] [place] [address] Aug, [facility] [place] [address] [id number] [place] [id number] Aug, [facility] [address] [id number] [address] [place] [address] Aug, [facility] [place] [address] [id number] [place] [id number] Aug, [facility] [address] [id number] [address] [place] [address] Aug, [facility] [place] [address] [id number] [place] [id number] Jul, [facility] [address] [id number] [address] [place] [address] Jul, [facility] [place] [address] [id number] [place] [id number] Jul, [facility] [address] [id number] [address] [place] [address], [place] [address] Jul, [facility] [place] [address] [id number] [place] [id number] Jun, [facility] [address] [id number] [address] [place] [address], [place] [address] Jun, [facility] [address] [id number] [address] [place] [address], [place] [address] Aug, [facility] [address] [id number] [address] [place] [address], [place] [address] Aug, [facility] [address] [id number] [place] [id number] Mar, [facility] [address] [id number] [place], [place] [id number] Jul, [facility] [address] [id number] [address] [place] [address] Jul, [facility] [address] [id number] [address] [place] [address] Jun, [facility] [address] [id number] [place] [id number] Jun, [facility] [address] [id number] [address] [place] [address] Sep, [facility] [address] [id number] [address] [place] [address] Jun, [facility] [address] [facility] [id number] [address] [place] [address] Jun, [facility] [address] [id number] [address] [place] [address] May, [facility] [address] [facility] [id number] [address] [place] [address] May, [facility] [address] [facility] [id number] [address] [place] [address] May, IMMUNIZATIONS No Known Immunizations SOCIAL HISTORY Never Assessed REASON FOR VISIT PLAN OF CARE VITAL SIGNS Height 68 in 2014-08-13 Weight 257.5 lbs 2014-08-13 Temperature 97.2 degrees Fahrenheit 2014-08-13 Heart Rate 80 bpm 2014-08-13 Respiratory Rate 16 2014-08-13 Blood pressure systolic 130 mmHg 2014-08-13 Blood pressure diastolic 70 mmHg 2014-08-13 MEDICATIONS Unknown Medications RESULTS No Results PROCEDURES No Known procedures INSTRUCTIONS MEDICATIONS ADMINISTERED No Known Medications MEDICAL (GENERAL) HISTORY Type Description Date Medical History Frequent Migraines Medical History Hypothyroidism Medical History HX of Colitis Surgical History tubal ligation 2011 Surgical History tonsillectomy 1985 Surgical History dilatation and curettage 2009 Hospitalization History [facility] for abd pain 09/26/18
--- OUTSIDE RECORDS SUMMARY | 2020-01-10 17:15 | XMS REPORT ---
Author Author Mirlande Mcdonnell Doctor Organization [facility] Address Unknown Phone Unavailable Care Team Providers Care Supply Planner Name Role Phone Migration, Doctor Unavailable Unavailable PROBLEMS Type Condition ICD9-CM Code [id number] Code Onset Dates Condition S tatus SNOMED Code Problem Moderate episode of recurrent major depressive disorder F33.1 Active 520063834 Problem Colitis K52.9 Active 87205172 Problem Autoimmune thyroiditis E06.3 Active 36825332 Problem Other specified hypothyroidism E03.8 Active 151462168 ALLERGIES No Information ENCOUNTERS Encounter Location Date Diagnosis [facility] [address] [id number] [address] [place] [id number] December, Dental examination Z01.20 [facility] [address] [id number] [place] [id number] December, [facility] [address] [id number] [place] [id number] Nov, Finger pain M79.646 and Morbid obesity E 66.01 [facility] [address] [id number] [place] [id number] Oct, Morbid obesity E66.01 and Colitis K52.9 [facility] 120 [facility] [address] [id number] [place] [id number] Oct, [facility] [address] [id number] [place] [id number] Sep, [facility] [address] [id number] [place] [id number] Sep, [facility] 120 [facility] [address] [id number] [place] [id number] Sep, Cyst of left ovary N83.202 and BMI 40.0- 44.9, adult Z68.41 [facility] [address] [id number] [place] [id number] Aug, Acute pain of right knee M25.561 and BMI 40.0-44.9, adult Z68.41 [facility] [address] [facility] [id number] [place] [id number] May, Myalgia M79.10 [facility] [address] [facility] [id number] [place] [id number] May, Other specified hypothyroidism E03.8 and Moderate episode of recurrent major depressive disorder F33.1 [facility] [id number] [place] [address], [place] [id number] Feb, Tendonitis M77.9 ; Posterior right knee pain M25.561 and Strain of right knee, subsequent encounter S86.911D [facility] [address] [id number] [place] [id number] Feb, Tendonitis M77.9 [facility] [address] [facility] [id number] [place] [id number] December, [place] [id number] [place] [address], [place] [id number] December, Left hand pain M79.642 [facility] [address] [facility] [id number] [place] [id number] Oct, BMI 40.0-44.9, adult Z68.41 and Acute na sopharyngitis J00 [facility] [address] [facility] [id number] [place] [id number] May, Visit for suture removal Z48.02 ; Encoun ter for vaccination Z23 and Encounter for immunization Z23 [place] [address] [address] [facility] [id number] [place] [id number] December, Tooth decayed K02.9 and Tooth caries K02 .9 [facility] [address] [id number] [place] [id number] December, Autoimmune thyroiditis E06.3 and Acute n asopharyngitis J00 [facility] [address] [facility] [id number] [place] [id number] Oct, Syncope, unspecified syncope type R55 ; Other specified hypothyroidism E03.8 and Autoimmune thyroiditis E06.3 [facility] [address] [id number] [place] [id number] Oct, Muscle spasm M62.838 and Neck pain, acut e M54.2 [facility] [id number] [place] [id number] Jan, Hordeolum externum of right upper eyelid H00.011 [facility] [place] [address] [id number] [place] [id number] December, [facility] [place] [address] [id number] [place] [id number] December, Hypothyroid 244.9 [facility] [address] [facility] [id number] [address] [place] [phone] Nov, [facility] [address] [facility] [id number] [address] [place] [phone] Nov, [facility] [place] [address] [facility] [id number] [address] [place] [phone] Aug, [facility] [address] [facility] [id number] [address] [place] [phone] Aug, [facility] [place] [address] [id number] [place] [id number] Aug, [facility] [address] [facility] [id number] [address] [place] [phone] Aug, [facility] [place] [address] [id number] [place] [id number] Aug, [facility] [address] [facility] [id number] [address] [place] [phone] Aug, [facility] [place] [address] [id number] [place] [id number] Jul, [facility] [address] [facility] [id number] [address] [place] [phone] Jul, [facility] [place] [address] [id number] [place] [id number] Jul, [facility] [place] [address] [facility] [id number] [address] [place] [phone] Jul, [facility] [place] [address] [id number] [place] [id number] Jun, [facility] [address] [id number] [address] [place] [phone] Jun, [facility] [address] [id number] [address] [place] [phone] Aug, [facility] [address] [id number] [address] [place] [phone] Aug, [facility] [place] [address] [id number] [place] [id number] Mar, [facility] [place] [address] [id number] [place] [id number] Jul, [facility] [address] [id number] [address] [place] [phone] Jul, [facility] [address] [id number] [address] [place] [phone] Jun, [facility] [place] [address] [id number] [place] [id number] Jun, [facility] [address] [id number] [address] [place] [phone] Sep, [facility] [address] [id number] [address] [place] [phone] Jun, [facility] [address] [id number] [address] [place] [phone] Jun, [facility] [address] [id number] [address] [place] [phone] May, [facility] [address] [id number] [address] [place] [phone] May, [facility] [address] [id number] [address] [place] [phone] May, IMMUNIZATIONS No Known Immunizations SOCIAL HISTORY Never Assessed REASON FOR VISIT PLAN OF CARE VITAL SIGNS MEDICATIONS Unknown Medications RESULTS No Results PROCEDURES No Known procedures INSTRUCTIONS MEDICATIONS ADMINISTERED No Known Medications MEDICAL (GENERAL) HISTORY Type Description Date Medical History Frequent Migraines Medical History Hypothyroidism Medical History HX of Colitis Surgical History tubal ligation 2011 Surgical History tonsillectomy 1985 Surgical History dilatation and curettage 2009 Hospitalization History Via [facility] ER for abd pain 09/26/18
--- OUTSIDE RECORDS SUMMARY | 2020-01-10 17:15 | XMS REPORT ---
Author Author Mirlande Mcdonnell Doctor Organization [facility] Address Unknown Phone Unavailable Care Team Providers Care Quencher Operator Name Role Phone Migration, Doctor Unavailable Unavailable PROBLEMS Type Condition ICD9-CM Code ERE33-IR Code Onset Dates Condition S tatus SNOMED Code Problem Moderate episode of recurrent major depressive disorder F33.1 Active 468923303 Problem Colitis K52.9 Active 62305750 Problem Autoimmune thyroiditis E06.3 Active 56779514 Problem Other specified hypothyroidism E03.8 Active 565595857 ALLERGIES No Information ENCOUNTERS Encounter Location Date Diagnosis [facility] [address] [id number] [address] [place] [id number] December, Dental examination Z01.20 [facility] [address] [id number] [place] [id number] December, [facility] [address] [id number] [place] [id number] Nov, Finger pain M79.646 and Morbid obesity E 66.01 [facility] [address] [id number] [place] [id number] Oct, Morbid obesity E66.01 and Colitis K52.9 [facility] [address] [id number] [place] [id number] Oct, [facility] [address] [id number] [place] [id number] Sep, [facility] [address] [id number] [place] [id number] Sep, [facility] [address] [id number] [place], [place] [id number] Sep, Cyst of left ovary N83.202 and BMI 40.0- 44.9, adult Z68.41 [facility] [address] [id number] [place] [id number] Aug, Acute pain of right knee M25.561 and BMI 40.0-44.9, adult Z68.41 [facility] [address] [facility] [id number] [place] [id number] May, Myalgia M79.10 [facility] [address] [facility] [id number] [place] [id number] May, Other specified hypothyroidism E03.8 and Moderate episode of recurrent major depressive disorder F33.1 [facility] [id number] [place] [address], [place] [id number] Feb, Tendonitis M77.9 ; Posterior right knee pain M25.561 and Strain of right knee, subsequent encounter S86.911D [facility] [address] [id number] [place] [id number] Feb, Tendonitis M77.9 [facility] [address] [facility] [id number] [place] [id number] December, [place] [id number] [place] [address], [place] [id number] December, Left hand pain M79.642 [facility] [address] [facility] [id number] [place] [id number] Oct, BMI 40.0-44.9, adult Z68.41 and Acute na sopharyngitis J00 [facility] [address] [facility] [id number] [place] [id number] May, Visit for suture removal Z48.02 ; Encoun ter for vaccination Z23 and Encounter for immunization Z23 [place] [address] [address] [facility] [id number] [place] [id number] December, Tooth decayed K02.9 and Tooth caries K02 .9 [facility] [address] [id number] [place] [id number] December, Autoimmune thyroiditis E06.3 and Acute n asopharyngitis J00 [facility] [address] [facility] [id number] [place] [id number] Oct, Syncope, unspecified syncope type R55 ; Other specified hypothyroidism E03.8 and Autoimmune thyroiditis E06.3 [facility] [address] [id number] [place] [id number] Oct, Muscle spasm M62.838 and Neck pain, acut e M54.2 [id number] [place] [place] [id number] Jan, Hordeolum externum of right upper eyelid H00.011 [facility] [place] [address] [id number] [place] [id number] December, [facility] [place] [address] [id number] [place] [id number] December, Hypothyroid 244.9 [facility] [address] [facility] [id number] [address] [place] [phone] Nov, [facility] [address] [facility] [id number] [address] [place] [phone] Nov, [facility] [address] [facility] [id number] [address] [place] [phone] Aug, [facility] [address] [facility] [id number] [address] [place] [phone] Aug, [facility] [place] [address] [id number] [place] [id number] Aug, [facility] [address] [facility] [id number] [address] [place] [phone] Aug, [facility] [place] [address] [id number] [place] [id number] Aug, [facility] [address] [facility] [id number] [address] [place] [phone] Aug, [facility] [place] [address] [id number] [place] [id number] Jul, [facility] [address] [facility] [id number] [address] [place] [phone] Jul, [facility] [place] [address] [id number] [place] [id number] Jul, [facility] [address] [facility] [id number] [address] [place] [phone] Jul, [facility] [place] [address] [id number] [place] [id number] Jun, [facility] [place] [address] [id number] [address] [place] [phone] Jun, [facility] [place] [address] [id number] [address] [place] [phone] Aug, [facility] [place] [address] [id number] [address] [place] [phone] Aug, [facility] [place] [address] [id number] [place] [id number] Mar, [facility] [place] [address] [id number] [place] [id number] Jul, [facility] [place] [address] [id number] [address] [place] [phone] Jul, [facility] [place] [address] [id number] [address] [place] [phone] Jun, [facility] [place] [address] [id number] [place] [id number] Jun, [facility] [place] [address] [id number] [address] [place] [phone] Sep, [facility] [place] [address] [id number] [address] [place] [phone] Jun, [facility] [place] [address] [id number] [address] [place] [phone] Jun, [facility] [place] [address] [id number] [address] [place] [phone] May, [facility] [place] [address] [id number] [address] [place] [phone] May, [facility] [place] [address] [id number] [address] [place] [phone] May, IMMUNIZATIONS No Known Immunizations SOCIAL HISTORY Never Assessed REASON FOR VISIT EMR-[facility] PLAN OF CARE VITAL SIGNS MEDICATIONS Unknown Medications RESULTS No Results PROCEDURES No Known procedures INSTRUCTIONS MEDICATIONS ADMINISTERED No Known Medications MEDICAL (GENERAL) HISTORY Type Description Date Medical History Frequent Migraines Medical History Hypothyroidism Medical History HX of Colitis Surgical History tubal ligation 2011 Surgical History tonsillectomy 1985 Surgical History dilatation and curettage 2009 Hospitalization History Via [facility] ER for abd pain 09/26/18
--- OUTSIDE RECORDS SUMMARY | 2020-01-10 17:15 | XMS REPORT ---
Author Author Mirlande QURESHI Organization [facility] Address [address] [place] [address] Care Team Providers Care Credit Risk Analytics Manager Name Role Phone JAISON QURESHI Unavailable PROBLEMS Type Condition ICD9-CM Code BLO68-NI Code Onset Dates Condition S tatus SNOMED Code Problem Moderate episode of recurrent major depressive disorder F33.1 Active 437780956 Problem Colitis K52.9 Active 77515604 Problem Autoimmune thyroiditis E06.3 Active 00250581 Problem Other specified hypothyroidism E03.8 Active 224153140 ALLERGIES No Information ENCOUNTERS Encounter Location Date Diagnosis [facility] [address] [id number] [address] [place] [id number] December, Dental examination Z01.20 [facility] [id number] [place] [address], [place] [id number] December, [place] [id number] [place] [address], [place] [id number] Nov, Finger pain M79.646 and Morbid obesity E 66.01 [place] [id number] [place] [address], [place] [id number] Oct, Morbid obesity E66.01 and Colitis K52.[address] [id number] [place] [id number] Oct, [facility] 120 [facility] [address] [id number] [place] [id number] Sep, [facility] [address] [place] [id number] [place] [id number] Sep, [facility] [address] [facility] [id number] [place] [id number] Sep, Cyst of left ovary N83.202 and BMI 40.0- 44.9, adult Z68.41 [facility] [address] [facility] [id number] [place] [id number] Aug, Acute pain of right knee M25.561 and BMI 40.0-44.9, adult Z68.41 [facility] [id number] [place] [address], [place] [id number] May, Myalgia M79.10 [facility] [address] [id number] [place] [id number] May, Other specified hypothyroidism E03.8 and Moderate episode of recurrent major depressive disorder F33.1 [facility] [id number] [place] [address], [place] [id number] Feb, Tendonitis M77.9 ; Posterior right knee pain M25.561 and Strain of right knee, subsequent encounter S86.911D [facility] [id number] [place] [address], [place] [id number] Feb, Tendonitis M77.9 [facility] [address], [place] [id number] December, [facility] [id number] [place] [address], [place] [id number] December, Left hand pain M79.642 [place] [address], [place] [id number] Oct, BMI 40.0-44.9, adult Z68.41 and Acute na sopharyngitis J00 [place] [address] [id number] [place] [address], [place] [id number] May, Visit for suture removal Z48.02 ; Encoun ter for vaccination Z23 and Encounter for immunization Z23 [facility] [address] [facility] [id number] [place] [id number] December, Tooth decayed K02.9 and Tooth caries K02 .9 [place] [address] [place] [id number] [place] [id number] December, Autoimmune thyroiditis E06.3 and Acute n asopharyngitis J00 [facility] [address] [place] [id number] [place] [id number] Oct, Syncope, unspecified syncope type R55 ; Other specified hypothyroidism E03.8 and Autoimmune thyroiditis E06.3 [facility] [address] [facility] [id number] [place] [id number] Oct, Muscle spasm M62.838 and Neck pain, acut e M54.2 [facility] [address] [facility] [address] [id number] [id number] Jan, Hordeolum externum of right upper eyelid H00.011 [facility] [address] [facility] [id number] [place] [id number] December, [facility] [address] [facility] [id number] [place] [id number] December, Hypothyroid 244.9 [facility] [address] [facility] [id number] [address] [place] [address] Nov, [facility] [address] [facility] [id number] [address] [place] [phone] Nov, [facility] [address] [facility] [id number] [address] [place] [phone] Aug, [facility] [address] [facility] [id number] [address] [place] [phone] Aug, [facility] [address] [facility] [id number] [place] [id number] Aug, [facility] [address] [facility] [id number] [address] [place] [phone] Aug, [facility] [address] [facility] [id number] [place] [id number] Aug, [facility] [address] [facility] [id number] [address] [place] [phone] Aug, [facility] [address] [facility] [id number] [place] [id number] Jul, [facility] [address] [facility] [id number] [address] [place] [phone] Jul, [facility] [address] [facility] [id number] [place] [id number] Jul, [facility] [address] [id number] [address] [place] [phone] Jul, [facility] [place] [address] [id number] [place] [id number] Jun, [facility] [address] [id number] [address] [place] [address], [place] [address] Jun, [facility] [address] [id number] [address] [place] [address], [place] [address] Aug, [facility] [address] [id number] [address] [place] [address], [place] [address] Aug, [facility] [address] [id number] [place] [id number] Mar, [facility] [address] [id number] [place] [id number] Jul, [facility] [address] [id number] [address] [place] [address], [place] [address] Jul, [facility] [address] [id number] [address] [place] [id number] Jun, [facility] [address] [id number] [place] [id number] Jun, [facility] [address] [id number] [address] [place] [id number] Sep, [facility] [address] [id number] [address] [place] [id number] Jun, [facility] [address] [id number] [address] [place] [id number] Jun, [facility] [address] [id number] [address] [place] [address], [place] [address] May, [facility] [address] [id number] [address] [place] [address], [place] [address] May, [facility] [address] [id number] [address] [place] [id number] May, IMMUNIZATIONS No Known Immunizations SOCIAL HISTORY Never Assessed REASON FOR VISIT PLAN OF CARE VITAL SIGNS Height 68 in 2014-08-19 Weight 257 lbs 2014-08-19 Temperature 98.2 degrees Fahrenheit 2014-08-19 Heart Rate 88 bpm 2014-08-19 Respiratory Rate 16 2014-08-19 Blood pressure systolic 122 mmHg 2014-08-19 Blood pressure diastolic 66 mmHg 2014-08-19 MEDICATIONS Unknown Medications RESULTS No Results PROCEDURES [...]
--- OUTSIDE RECORDS SUMMARY | 2020-01-10 17:15 | XMS REPORT ---
Author Author Mirlande Mcdonnell Doctor Organization [facility] Address Unknown Phone Unavailable Care Team Providers Care E Commerce Retailer Name Role Phone Migration, Doctor Unavailable Unavailable PROBLEMS Type Condition ICD9-CM Code BTS69-UG Code Onset Dates Condition S tatus SNOMED Code Problem Colitis K52.9 Active 13450673 Problem Anxiety F41.9 Active 99503737 Problem Autoimmune thyroiditis E06.3 Active 09742427 Problem Other specified hypothyroidism E03.8 Active 549466221 Problem Moderate episode of recurrent major depressive disorder F33.1 Active 517688195 ALLERGIES No Information ENCOUNTERS Encounter Location Date Diagnosis [place] [id number] 0 6 Nov, 2019 [place] [id number] 0 4 Oct, 2019 Moderate episode of recurrent major depressive disorder F33.1 ; Anxiety F41.9 and Abscess L02.91 [place] [id number] 2 6 Sep, 2019 Autoimmune thyroiditis E06.3 and Other specified hypothyroidism E03.8 [place] [id number] 2 4 Sep, 2019 Influenza A J10.1 and Elevated temperature R50.[address] [id number] 1 2 Sep, 2019 Viral illness B34.9 and Elevated temperature R50.9 [facility] [address] [facility] [place] [id number] December, Dental examination Z01.[address] [place] [id number] December, [address] [place] [id number] Nov, Finger pain M79.646 and Morbid obesity E66.[address] [id number] Oct, Morbid obesity E66.01 and Colitis K52.[address] [id number] Oct, [address] [id number] Sep, [address] [id number] Sep, [address] [id number] Sep, Cyst of left ovary N83.202 and BMI 40.0-44.9, adult Z68.[address] [id number] Aug, Acute pain of right knee M25.561 and BMI 40.0-44.9, adult Z68.[address] [id number] May, Myalgia M79.[address] [id number] May, Other specified hypothyroidism E03.8 and Moderate episode of recurrent major depressive disorder F33.[address] [id number] Feb, Tendonitis M77.9 ; Posterior right knee pain M25.561 and Strain of right knee, subsequent encounter S86.911D [address] [id number] Feb, Tendonitis M77.[address] [id number] December, [address] [id number] December, Left hand pain M79.[address] [id number] Oct, BMI 40.0-44.9, adult Z68.41 and Acute nasopharyngitis J00 [address] [id number] May, Visit for suture removal Z48.02 ; Encounter for vaccination Z23 and Encounter for immunization Z23 [address] [id number] December, Tooth decayed K02.9 and Tooth caries K02.[address] [place] [address] [id number] December, Autoimmune thyroiditis E06.3 and Acute nasopharyngitis J00 [place] [id number] [place] [address] [id number] Oct, Syncope, unspecified syncope type R55 ; Other specified hypothyroidism E03.8 and Autoimmune thyroiditis E06.[address] [id number] Oct, Muscle spasm M62.838 and Neck pain, acute M54.2 [facility] [address] [facility] [place] [id number] Jan, Hordeolum externum of right upper eyelid H00.011 [place] [id number] [place] [id number] December, [address] [id number] December, Hypothyroid 244.9 [facility] [address] [address] Nov, [facility] [address] [address] Nov, [facility] [address] [address] Aug, [facility] [address] [address] Aug, [address] [id number] Aug, [facility] [address] [address] Aug, [address] [id number] Aug, [facility] [address] [facility] [place] [address] Aug, [facility] [place] [address] [place] [id number] [id number] Jul, [facility] [address] [facility] [place] [address] Jul, [facility] [place] [address] [place] [id number] [place] [id number] Jul, [facility] [address] [place] [place] [id number] [place] [address] Jul, [facility] [address] [place] [id number] [id number] Jun, [facility] [address] [place] [id number] [place] [address] Jun, [facility] [address] [place] [id number] [place] [address] Aug, [facility] [address] [place] [id number] [place] [address] Aug, [facility] [address] [facility] [place] [id number] Mar, [facility] [address] [id number] [id number] Jul, [facility] [address] [facility] [place] [address] Jul, [facility] [address] [place] [address] [id number] [place] [address] Jun, [facility] [place] [address] [facility] [id number] Jun, [facility] [address] [place] [address] [id number] [place] [address] Sep, [facility] [address] [place] [id number] [place] [address] Jun, [facility] [address] [facility] [place] [address] Jun, [facility] [address] [facility] [place] [address] May, [facility] [address] [facility] [place] [address] May, [facility] [address] [facility] [place] [address] May, IMMUNIZATIONS No Known Immunizations SOCIAL HISTORY [...] dilatation and curettage 2009 Hospitalization History Via [facility] for abd pain 09/26/18
--- OUTSIDE RECORDS SUMMARY | 2020-01-10 17:15 | XMS REPORT ---
Author Author Mirlande QURESHI Organization [facility] Address [address] [place] [address] Care Team Providers Care Home Care Associate Name Role Phone JAISON QURESHI Unavailable PROBLEMS Type Condition ICD9-CM Code MPT39-UZ Code Onset Dates Condition S tatus SNOMED Code Problem Moderate episode of recurrent major depressive disorder F33.1 Active 023002817 Problem Colitis K52.9 Active 07013664 Problem Autoimmune thyroiditis E06.3 Active 34710582 Problem Other specified hypothyroidism E03.8 Active 202610918 ALLERGIES No Information ENCOUNTERS Encounter Location Date Diagnosis [facility] [address] [id number] [address] [place] [id number] December, Dental examination Z01.20 [facility] [address] [place] [id number] [place] [address], [place] [id number] December, [place] [id number] [place] [address], [place] [id number] Nov, Finger pain M79.646 and Morbid obesity E 66.01 [place] [id number] [place] [address], [place] [id number] Oct, Morbid obesity E66.01 and Colitis K52.[address] [id number] [place] [id number] Oct, [facility] [address] [facility] [address] [id number] [place] [id number] Sep, [facility] [address] [place] [id number] [place] [id number] Sep, [facility] [address] [place] [id number] [place] [id number] Sep, Cyst of left ovary N83.202 and BMI 40.0- 44.9, adult Z68.41 [facility] [address] [facility] [id number] [place] [id number] Aug, Acute pain of right knee M25.561 and BMI 40.0-44.9, adult Z68.41 [facility] [address] [place] [id number] [place] [address], [place] [id number] May, Myalgia M79.10 [facility] [address] [place] [id number] [place] [id number] May, Other specified hypothyroidism E03.8 and Moderate episode of recurrent major depressive disorder F33.1 [facility] [address] [place] [id number] [place] [address], [place] [id number] Feb, Tendonitis M77.9 ; Posterior right knee pain M25.561 and Strain of right knee, subsequent encounter S86.911D [facility] [address] [place] [id number] [place] [address], [place] [id number] Feb, Tendonitis M77.9 [facility] [address], [place] [id number] December, [facility] [address] [place] [id number] [place] [address], [place] [id number] December, Left hand pain M79.642 [place] [address], [place] [id number] Oct, BMI 40.0-44.9, adult Z68.41 and Acute na sopharyngitis J00 [place] [address] [place] [id number] [place] [address], [place] [id number] May, Visit for suture removal Z48.02 ; Encoun ter for vaccination Z23 and Encounter for immunization Z23 [facility] [address] [facility] [id number] [place] [id number] December, Tooth decayed K02.9 and Tooth caries K02 .9 [place] [address] [place] [id number] [place] [id number] December, Autoimmune thyroiditis E06.3 and Acute n asopharyngitis J00 [facility] [address] [place] [id number] [place] [id number] Oct, Syncope, unspecified syncope type R55 ; Other specified hypothyroidism E03.8 and Autoimmune thyroiditis E06.3 [facility] [address] [facility] [id number] [place] [id number] Oct, Muscle spasm M62.838 and Neck pain, acut e M54.2 [facility] [address] [facility] [id number] [id number] Jan, Hordeolum externum of right upper eyelid H00.011 [facility] [address] [facility] [id number] [place] [id number] December, [facility] [address] [facility] [id number] [place] [id number] December, Hypothyroid 244.9 [facility] [address] [facility] [id number] [address] [place] [address] Nov, [facility] [address] [facility] [id number] [address] [place] [address] Nov, [facility] [address] [facility] [id number] [address] [place] [address] Aug, [facility] [address] [facility] [id number] [address] [place] [address] Aug, [facility] [address] [facility] [id number] [place] [id number] Aug, [facility] [address] [facility] [id number] [address] [place] [address] Aug, [facility] [address] [facility] [id number] [place] [id number] Aug, [facility] [address] [facility] [id number] [address] [place] [address] Aug, [facility] [address] [facility] [id number] [place] [id number] Jul, [facility] [address] [facility] [id number] [address] [place] [address] Jul, [facility] [address] [facility] [id number] [place] [id number] Jul, [facility] [address] [id number] [address] [place] [address] Jul, [facility] [place] [address] [id number] [place] [id number] Jun, [facility] [address] [id number] [address] [place] [address], [place] [address] Jun, [facility] [address] [id number] [address] [address], [place] [address] Aug, [facility] [address] [id number] [address] [place] [address], [place] [address] Aug, [facility] [place] [address] [id number] [place] [id number] Mar, [facility] [place] [address] [id number] [place] [id number] Jul, [facility] [address] [id number] [address] [place] [address], [place] [address] Jul, [facility] [address] [id number] [address] [place] [address] Jun, [facility] [place] [address] [id number] [place] [id number] Jun, [facility] [address] [id number] [address] [place] [address] Sep, [facility] [address] [id number] [address] [place] [address] Jun, [facility] [address] [id number] [address] [place] [address] Jun, [facility] [address] [id number] [address] [address], [place] [address] May, [facility] [address] [id number] [address] [place] [address], [place] [address] May, [facility] [address] [id number] [address] [place] [address] May, IMMUNIZATIONS No Known Immunizations SOCIAL HISTORY Never Assessed REASON FOR VISIT PLAN OF CARE VITAL SIGNS Height 68 in 2014-06-23 Weight 262.6 lbs 2014-06-23 Temperature 98.3 degrees Fahrenheit 2014-06-23 Heart Rate 88 bpm 2014-06-23 Respiratory Rate 16 2014-06-23 Blood pressure systolic 126 mmHg 2014-06-23 Blood pressure diastolic 86 mmHg 2014-06-23 MEDICATIONS Unknown Medications RESULTS No Results PROCEDURES No Known procedures INSTRUCTIONS MEDICATIONS ADMINISTERED No Known Medications MEDICAL (GENERAL) HISTORY Type Description Date Medical History Frequent Migraines Medical History Hypothyroidism Medical History HX of Colitis Surgical History tubal ligation 2011 Surgical History tonsillectomy 1985 Surgical History dilatation and curettage 2009 Hospitalization History Via [facility] for abd pain 09/26/18
--- OUTSIDE RECORDS SUMMARY | 2020-01-10 17:15 | XMS REPORT ---
Author Author Mirlande Mcdonnell Doctor Organization [facility] Address Unknown Phone Unavailable Care Team Providers Care Circular Knitter Name Role Phone Migration, Doctor Unavailable Unavailable PROBLEMS Type Condition ICD9-CM Code QCR69-AG Code Onset Dates Condition S tatus SNOMED Code Problem Moderate episode of recurrent major depressive disorder F33.1 Active 314332138 Problem Colitis K52.9 Active 50354254 Problem Autoimmune thyroiditis E06.3 Active 09811326 Problem Other specified hypothyroidism E03.8 Active 019782469 ALLERGIES No Information ENCOUNTERS Encounter Location Date Diagnosis [place] [id number] [place] [address], [place] [id number] Nov, [address], [place] [id number] Oct, Morbid obesity E66.01 and Colitis K52.9 [place] [address] [place] [id number] [place] [address], [place] [id number] Oct, [address], [place] [id number] Sep, [place] [address] [place] [id number] [place] [address], [place] [id number] Sep, [place] [id number] [place] [address], [place] [id number] Sep, Cyst of left ovary N83.202 and BMI 40.0- 44.9, adult Z68.41 [facility] [address] [place] [id number] [place] [id number] Aug, Acute pain of right knee M25.561 and BMI 40.0-44.9, adult Z68.41 [facility] [address] [id number] [place], [place] [id number] May, Myalgia M79.10 [facility] [address] [id number] [place], [place] [id number] May, Other specified hypothyroidism E03.8 and Moderate episode of recurrent major depressive disorder F33.[address] [id number] [place] [id number] Feb, Tendonitis M77.9 ; Posterior right knee pain M25.561 and Strain of right knee, subsequent encounter S86.911D [address] [id number] [place], [place] [id number] Feb, Tendonitis M77.[address] [id number] [place], [place] [id number] December, [address] [id number] [place], [place] [id number] December, Left hand pain M79.642 [place] [id number] [place] [address], [place] [id number] Oct, BMI 40.0-44.9, adult Z68.41 and Acute na sopharyngitis J00 [place] [id number] [place] [address], [place] [id number] May, Visit for suture removal Z48.02 ; Encoun ter for vaccination Z23 and Encounter for immunization Z23 [place] [id number] [place] [address], [place] [id number] December, Tooth decayed K02.9 and Tooth caries K02 .9 [place] [id number] [place] [address], [place] [id number] December, Autoimmune thyroiditis E06.3 and Acute n asopharyngitis J00 [address] [id number] [place] [id number] Oct, Syncope, unspecified syncope type R55 ; Other specified hypothyroidism E03.8 and Autoimmune thyroiditis E06.3 [place] [id number] [place] [address], [place] [id number] Oct, Muscle spasm M62.838 and Neck pain, acut e M54.2 [facility] [address] [id number] [id number] Jan, Hordeolum externum of right upper eyelid H00.011 [facility] [place] [address] [id number] [place] [id number] December, [facility] [place] [address] [id number] [place], [place] [id number] December, Hypothyroid 244.9 [facility] [address] [id number] [address] [place] [address], [place] [address] Nov, [facility] [address] [id number] [address] [place] [address] Nov, [facility] [address] [facility] [id number] [address] [place] [address] Aug, [facility] [address] [facility] [id number] [address] [place] [address] Aug, [facility] [place] [address] [facility] [id number] [place] [id number] Aug, [facility] [address] [facility] [id number] [address] [place] [address] Aug, [facility] [place] [address] [id number] [place] [id number] Aug, [facility] [address] [facility] [id number] [address] [place] [address] Aug, [facility] [place] [address] [id number] [place], [place] [id number] Jul, [facility] [address] [facility] [id number] [address] [place] [address], [place] [address] Jul, [facility] [place] [address] [id number] [place] [id number] Jul, [facility] [address] [facility] [id number] [address] [place] [address] Jul, [facility] [place] [address] [id number] [place], [place] [id number] Jun, [facility] [address] [facility] [id number] [address] [place] [address] Jun, [facility] [address] [facility] [id number] [address] [place] [address] Aug, [facility] [address] [facility] [id number] [address] [place] [address] Aug, [facility] [address] [id number] [place] [id number] Mar, [facility] [address] [id number] [place] [id number] Jul, [facility] [address] [facility] [id number] [address] [place] [address] Jul, [facility] [address] [facility] [id number] [address] [place] [address] Jun, [facility] [address] [id number] [place], [place] [id number] Jun, [facility] [address] [facility] [id number] [address] [place] [address] Sep, [facility] [address] [facility] [id number] [address] [place] [address] Jun, [facility] [address] [facility] [id number] [address] [place] [address] Jun, [facility] [address] [facility] [id number] [address] [place] [address] May, [facility] [address] [facility] [id number] [address] [place] [phone] May, [facility] [address] [facility] [id number] [address] [place] [phone] May, IMMUNIZATIONS No Known Immunizations SOCIAL HISTORY Never Assessed REASON FOR VISIT EMR-[facility] PLAN OF CARE VITAL SIGNS MEDICATIONS Medication Instructions Dosage Frequency Start Date End Date Duration S tatus Ibuprofen 800 mg take 1 tablet by Ora l route 3 times per day with food PRN migraine Jul, Active Ceftin 250 mg 1 tablet by Oral route 2 times per day f or 10 day(s) Aug, Active Ofloxacin 0.3 % 3 drop by Otic route 2 times per day f or 10 day(s) Aug, Active promethazine 25 mg 1 tablet by Oral route every 8 hour s PRN migraine Jul, Active HydrOXYzine HCl 25 mg take 1-2 tablet by Oral route 1 time per day take at hs Jul, Active RESULTS No Results PROCEDURES No Known procedures INSTRUCTIONS MEDICATIONS ADMINISTERED No Known Medications MEDICAL (GENERAL) HISTORY Type Description Date Medical History Frequent Migraines Medical History Hypothyroidism Medical History HX of Colitis Surgical History tubal ligation 2011 Surgical History tonsillectomy 1984 Surgical History dilatation and curettage 2009 Hospitalization History Via [facility] for abd pain 09/26/18
--- OUTSIDE RECORDS SUMMARY | 2020-01-10 17:15 | XMS REPORT ---
Author Author Kecia, Mirlande Doctor Organization [facility] Address Unknown Phone Unavailable Care Team Providers Care Linoleum Printer Name Role Phone Migration, Doctor Unavailable Unavailable PROBLEMS Type Condition ICD9-CM Code ZID70-KI Code Onset Dates Condition S tatus SNOMED Code Problem Colitis K52.9 Active 06079624 Problem Anxiety F41.9 Active 35423880 Problem Autoimmune thyroiditis E06.3 Active 52721171 Problem Other specified hypothyroidism E03.8 Active 582399286 Problem Moderate episode of recurrent major depressive disorder F33.1 Active [id number] ALLERGIES No Information ENCOUNTERS Encounter Location Date Diagnosis [address] [address] 08 Nov, 2019 Finger pain M79.646 [id number] [address] 07 Nov, 2019 Colitis K52.[address] [id number] [address] Oct, Moderate episode of recurrent major depr essive disorder F33.1 [address] [address] Oct, Moderate episode of recurrent major depr essive disorder F33.1 ; Anxiety F41.9 and Abscess L02.[address] [id number] [address] Sep, Autoimmune thyroiditis E06.3 and Other s pecified hypothyroidism E03.[address] [id number] [address] Sep, Influenza A J10.1 and Elevated temperatu re R50.9 [id number] [address] Sep, Viral illness B34.9 and Elevated tempera ture R50.9 [facility] [address] [id number] [address] [place] [id number] December, Dental examination Z01.20 [facility] [address] [facility] [id number] [place] [id number] December, [facility] [id number] [place] [address], [place] [id number] Nov, Finger pain M79.646 and Morbid obesity E 66.01 [facility] [id number] [place] [address], [place] [id number] Oct, Morbid obesity E66.01 and Colitis K52.9 [facility] [id number] [place] [address], [place] [id number] Oct, [facility] [id number] [place] [address], [place] [id number] Sep, [facility] [id number] [place] [address], [place] [id number] Sep, [facility] [id number] [place] [address], [place] [id number] Sep, Cyst of left ovary N83.202 and BMI 40.0- 44.9, adult Z68.41 [facility] [id number] [place] [address], [place] [id number] Aug, Acute pain of right knee M25.561 and BMI 40.0-44.9, adult Z68.41 [facility] [id number] [place] [address], [place] [id number] May, Myalgia M79.10 [facility] [address] [id number] [place] [id number] May, Other specified hypothyroidism E03.8 and Moderate episode of recurrent major depressive disorder F33.1 [facility] [address] [id number] [place] [id number] Feb, Tendonitis M77.9 ; Posterior right knee pain M25.561 and Strain of right knee, subsequent encounter S86.911D [facility] [address] [facility] [id number] [place] [id number] Feb, Tendonitis M77.9 [facility] [address] [facility] [id number] [place] [id number] December, [facility] [address] [facility] [id number] [place] [id number] December, Left hand pain M79.642 [facility] [id number] [place] [address], [place] [id number] Oct, BMI 40.0-44.9, adult Z68.41 and Acute na sopharyngitis J00 [address] [id number] [place] [id number] 11 May, 2017 Visit for suture removal Z48.02 ; Encoun ter for vaccination Z23 and Encounter for immunization Z23 [id number] [place] [address], [place] [id number] December, Tooth decayed K02.9 and Tooth caries K02 .9 [address] [id number] [place] [id number] December, Autoimmune thyroiditis E06.3 and Acute n asopharyngitis J00 [id number] [place] [address], [place] [id number] Oct, 2016 Syncope, unspecified syncope type R55 ; Other specified hypothyroidism E03.8 and Autoimmune thyroiditis E06.[address] [id number] [place] [id number] Oct, Muscle spasm M62.838 and Neck pain, acut e M54.2 [facility] [address] [id number] [id number] Jan, Hordeolum externum of right upper eyelid H00.011 [facility] [address] [facility] [id number] [place] [id number] December, [facility] [address] [facility] [id number] [place] [id number] December, Hypothyroid 244.9 [facility] [address] [id number] [address] [place] [address], [place] [address] Nov, [facility] [address] [id number] [address] [place] [address], [place] [address] Nov, [facility] [address] [id number] [address] [place] [address], [place] [address] Aug, [facility] [address] [id number] [address] [place] [address], [place] [address] Aug, [facility] [address] [id number] [place] [id number] Aug, [facility] [address] [id number] [address] [place] [address], [place] [address] Aug, [facility] [address] [id number] [place] [id number] Aug, [facility] [address] [id number] [address] [place] [address], [place] [address] Aug, [facility] [address] [id number] [place] [id number] Jul, [facility] [address] [id number] [address] [place] [address], [place] [address] Jul, [facility] [address] [id number] [place] [id number] Jul, [facility] [address] [id number] [address] [place] [address], [place] [address] Jul, [facility] [address] [id number] [place] [id number] Jun, [facility] [address] [id number] [address] [place] [address], [place] [address] Jun, [facility] [address] [id number] [address] [place] [address], [place] [address] Aug, [facility] [address] [id number] [address] [place] [address], [place] [address] Aug, [facility] [address] [id number] [place] [id number] Mar, [facility] [address] [facility] [id number] [place] [id number] Jul, [facility] [address] [id number] [address] [place] [address] Jul, [facility] [address] [id number] [address] [place] [address] Jun, [facility] [address] [facility] [id number] [place] [id number] Jun, [facility] [address] [id number] [address] [place] [address] Sep, [facility] [address] [id number] [address] [place] [address] Jun, [facility] [address] [facility] [id number] [address] [place] [address] Jun, [facility] [address] [facility] [id number] [address] [place] [address] May, [facility] [address] [facility] [id number] [address] [place] [address] May, [facility] [address] [facility] [id number] [address] [place] [address] May, IMMUNIZATIONS No Known Immunizations SOCIAL HISTORY [...] dilatation and curettage 2009 Hospitalization History Via [facility] for abd pain 09/26/18
--- OUTSIDE RECORDS SUMMARY | 2020-01-10 17:16 | XMS REPORT | Continuity of Care Document ---
Author Organization Unknown Address Unknown Phone Unavailable Allergies Active Description Code Type Severity Reaction Onset Reported/Identified Relationship to Patient Clinical Status Yes No Known Drug Allergies [id number] Drug Allergy Unknown N/A 01/25/2010 Medications There is no data. Problems Date Dx Coded Attending Type Code Diagnosis Diagnosed By 01/25/2010 Ot 521.00 01/25/2010 Ot 522.5 01/25/2010 Ot 784.2 05/26/2010 632 MISSED 05/26/2010 632 MISSED 05/26/2010 632 MISSED 05/26/2010 NILSA DOYLE DO 632 MISSED 05/26/2010 NILSA DOYLE DO 632 MISSED 05/26/2010 NILSA DOYLE DO 632 MISSED 05/26/2010 NILSA DOYLE DO 632 MISSED 06/03/2010 641.90 UNS PECIFIED ANTEPARTUM HEMORRHAGE UNSPECIFIED TO EPISODE OF CARE 06/03/2010 641.90 UNS PECIFIED ANTEPARTUM HEMORRHAGE UNSPECIFIED TO EPISODE OF CARE 06/03/2010 641.90 UNS PECIFIED ANTEPARTUM HEMORRHAGE UNSPECIFIED TO EPISODE OF CARE 06/03/2010 NILSA DOYLE DO 641.90 UNSPECIFIED ANTEPARTUM HEMORRHAGE UNSPECIFIED TO EPISODE OF CARE 06/03/2010 NILSA DOYLE DO 641.90 UNSPECIFIED ANTEPARTUM HEMORRHAGE UNSPECIFIED TO EPISODE OF CARE 06/03/2010 NILSA DOYLE DO 641.90 UNSPECIFIED ANTEPARTUM HEMORRHAGE UNSPECIFIED TO EPISODE OF CARE 06/03/2010 NILSA DOYLE DO 641.90 UNSPECIFIED ANTEPARTUM HEMORRHAGE UNSPECIFIED TO EPISODE OF CARE 06/15/2010 276.8 HYPO POTASSEMIA 06/15/2010 634.10 SPO NTANEOUS UNSPECIFIED COMPLICATED BY DELAYED OR EXCESSIVE HEMORRHAGE 06/15/2010 276.8 HYPO POTASSEMIA 06/15/2010 634.10 SPO NTANEOUS UNSPECIFIED COMPLICATED BY DELAYED OR EXCESSIVE HEMORRHAGE 06/15/2010 276.8 HYPO POTASSEMIA 06/15/2010 634.10 SPO NTANEOUS UNSPECIFIED COMPLICATED BY DELAYED OR EXCESSIVE HEMORRHAGE 06/15/2010 DOYLE DO NILSA K 276.8 HYPOPOTASSEMIA 06/15/2010 DOYLE DO NILSA K 634.10 SPONTANEOUS UNSPECIFIED COMPLICATED BY DELAYED OR EXCESSIVE HEMORRHAGE 06/15/2010 DOYLE DO NILSA K 276.8 HYPOPOTASSEMIA 06/15/2010 DOYLE DO NILSA K 634.10 SPONTANEOUS UNSPECIFIED COMPLICATED BY DELAYED OR EXCESSIVE HEMORRHAGE 06/15/2010 DOYLE DO NILSA K 276.8 HYPOPOTASSEMIA 06/15/2010 DOYLE DO NILSA K 634.10 SPONTANEOUS UNSPECIFIED COMPLICATED BY DELAYED OR EXCESSIVE HEMORRHAGE 06/15/2010 DOYLE DO NILSA K 276.8 HYPOPOTASSEMIA 06/15/2010 DOYLE DO NILSA K 634.10 SPONTANEOUS UNSPECIFIED COMPLICATED BY DELAYED OR EXCESSIVE HEMORRHAGE 09/23/2010 461.9 ACUT E SINUSITIS UNSPECIFIED 09/23/2010 461.9 ACUT E SINUSITIS UNSPECIFIED 09/23/2010 461.9 ACUT E SINUSITIS UNSPECIFIED 09/23/2010 JACQUELIN DOYLE DOA K 461.9 ACUTE SINUSITIS UNSPECIFIED 09/23/2010 DOYLE DO NILSA K 461.9 ACUTE SINUSITIS UNSPECIFIED 09/23/2010 JACQUELIN DOYLE DOA K 461.9 ACUTE SINUSITIS UNSPECIFIED 09/23/2010 DOYLE DO NILSA K 461.9 ACUTE SINUSITIS UNSPECIFIED 10/07/2010 V70.5 HEAL TH EXAMINATION OF DEFINED SUBPOPULATIONS 10/07/2010 V70.5 HEAL TH EXAMINATION OF DEFINED SUBPOPULATIONS 10/07/2010 V70.5 HEAL TH EXAMINATION OF DEFINED SUBPOPULATIONS 10/07/2010 NILSA DOYLE DO K V70.5 HEALTH EXAMINATION OF DEFINED SUBPOPULATIONS 10/07/2010 JACQUELIN DOYLE DOA K V70.5 HEALTH EXAMINATION OF DEFINED SUBPOPULATIONS 10/07/2010 JACQUELIN DOYLE DOA K V70.5 HEALTH EXAMINATION OF DEFINED SUBPOPULATIONS 10/07/2010 JACQUELIN DOYLE DOA K V70.5 HEALTH EXAMINATION OF DEFINED SUBPOPULATIONS 12/19/2010 Ot 599.0 12/19/2010 Ot 646.63 12/19/2010 Ot 789.09 12/26/2010 Ot 640.03 03/11/2011 Ot 276.8 03/11/2011 Ot 625.9 03/11/2011 Ot 646.83 06/16/2011 Ot 644.03 THR T JETT LABOR- ANTEPART 08/02/2011 Ot 644.13 THR EAT LABOR NEC- ANTEPAR 08/04/2011 Ot 663.31 COR D ENTANGLE NEC-DELIV 08/04/2011 Ot 664.01 DEL W 1 DEG LACERAT-DEL 08/04/2011 Ot V06.1 [id number]-RWFANKE-GSEBUREMT, COMBINED [ 08/04/2011 Ot V27.0 DELI KIEL-SINGLE LIVEBORN 07/04/2012 692.9 DERM ATITIS CONTACT UNSPECIFIED 07/04/2012 692.9 DERM ATITIS CONTACT UNSPECIFIED 07/04/2012 692.9 DERM ATITIS CONTACT UNSPECIFIED 07/04/2012 DOYLE DO, NILSA K 692.9 DERMATITIS CONTACT UNSPECIFIED 07/04/2012 DOYLE DO, NILSA K 692.9 DERMATITIS CONTACT UNSPECIFIED 07/04/2012 DOYLE DO, NILSA K 692.9 DERMATITIS CONTACT UNSPECIFIED 07/04/2012 DOYLE DO, NILSA K 692.9 DERMATITIS CONTACT UNSPECIFIED 03/14/2013 784.0 HEADACHE 03/14/2013 DOYLE DO, NILSA K 784.0 HEADACHE 03/14/2013 DOYLE DO, NILSA K 784.0 HEADACHE 03/14/2013 DOYLE DO, NILSA K 784.0 HEADACHE 03/14/2013 DOYLE DO, NILSA K 784.0 HEADACHE 06/23/2014 DOYLE DO, NILSA K 372.30 CONJUNCTIVITIS UNSPECIFIED 06/23/2014 DOYLE DO, NILSA K 462 PHARYNGITIS ACUTE 06/23/2014 DOYLE DO, NILSA K 465.9 UPPER RESPIRATORY INFECTION 06/23/2014 DOYLE DO, NILSA K 372.30 CONJUNCTIVITIS UNSPECIFIED 06/23/2014 DOYLE DO, NILSA K 462 PHARYNGITIS ACUTE 06/23/2014 DOYLE DO, NILSA K 465.9 UPPER RESPIRATORY INFECTION 06/23/2014 DOYLE DO, NILSA K 372.30 CONJUNCTIVITIS UNSPECIFIED 06/23/2014 DOYLE DO, NILSA K 462 PHARYNGITIS ACUTE 06/23/2014 DOYLE DO, NILSA K 465.9 UPPER RESPIRATORY INFECTION 06/23/2014 DOYLE DO, NILSA K 372.30 CONJUNCTIVITIS UNSPECIFIED 06/23/2014 DOYLE DO, NILSA K 462 PHARYNGITIS ACUTE 06/23/2014 VIVEK GUADALUPE NILSA K 465.9 UPPER RESPIRATORY INFECTION 07/21/2014 VIVEK GUADALUPE NILSA K 346.90 HEADACHE, MIGRAINE 07/21/2014 VIVEK GUADALUPENILSA 346.90 HEADACHE, MIGRAINE 07/21/2014 VIVEK GUADALUPE NILSA K 346.90 HEADACHE, MIGRAINE 08/13/2014 VIVEK GUADALUPE NILSA K 382.01 OTITIS MEDIA ACUTE W RUPTURE EARDRUM 08/13/2014 VIVEK GUADALUPE NILSA K V58.32 SUTURE REMOVAL 08/13/2014 VIVEK GUADALUPE NILSA K 382.01 OTITIS MEDIA ACUTE W RUPTURE EARDRUM 08/13/2014 VIEVK GUADALUPE NILSA Semaj V58.32 SUTURE REMOVAL 09/26/2014 Ot 847.2 SPRA IN LUMBAR REGION 09/26/2014 Ot 959.19 OTH INJURY OF OTHER SITES OF TRUNK 09/26/2014 Ot E000.0 CIV YUE ACTIVITY DONE FOR INCOME OR PAY 09/26/2014 Ot E849.6 ACC IDENT IN PUBLIC BLDG 09/26/2014 Ot E888.9 FAL L NOS 09/26/2014 Ot E927.0 OVE REXERTION FROM SUDDEN STRENUOUS MOVEM 11/18/2014 VIVEK GUADALUPE NILSA K 780.79 FATIGUE 11/18/2014 VIVEK GUADALUPE NILSA K 786.05 SHORTNESS OF BREATH 11/18/2014 RO GEIGER DO Semaj Ot 241.0 NONTOX UNINODULAR GOITER 11/18/2014 FELY GUADALUPE RO Cha Ot 244.9 HYPOTHYROIDISM NOS 11/18/2014 RO GEIGER DO Ot 785.1 PALPITATIONS 11/18/2014 FELY GUADALUPE RO Cha Ot 786.05 SHORTNESS OF BREATH 06/26/2016 ROBERT LIANG MD Ot F17.210 NICOTINE DEPENDENCE, CIGARETTES, UNCOMPL 06/26/2016 ROBERT LIANG MD Ot J40 BRONCHITIS, NOT SPECIFIED ACUTE OR CH 06/26/2016 ROBERT LIANG MD Ot R05 COUGH 06/26/2016 ROBERT LIANG MD Ot R06.9 UNSPECIFIED ABNORMALITIES OF BREATHING 06/28/2016 ROBERT LIANG MD Ot F17.210 NICOTINE DEPENDENCE, CIGARETTES, UNCOMPL 06/28/2016 ROBERT LIANG MD Ot J40 BRONCHITIS, NOT SPECIFIED ACUTE OR CH 06/28/2016 ROBERT LIANG MD Ot R05 COUGH 06/28/2016 ROBERT LIANG MD Ot R06.9 UNSPECIFIED ABNORMALITIES OF BREATHING 11/28/2016 TOI DODD Ot F17.210 NICOTINE DEPENDENCE, CIGARETTES, UNCOMPL 11/28/2016 TOI DODD Ot G43.909 MIGRAINE, UNSP, NOT INTRACTABLE, WITHOUT 11/28/2016 TOI DODD Ot S16.1XXA STRAIN OF MUSCLE, FASCIA AND TENDON AT N 11/28/2016 TOI DODD Ot X50.9XXA OTHER AND UNSPECIFIED OVREXRTN OR STRNOU 11/28/2016 TOI DODD Ot Y99.8 OTHER EXTERNAL CAUSE STATUS 08/19/2017 TOI DODD Ot E03.9 HYPOTHYROIDISM, UNSPECIFIED 08/19/2017 TOI DODD Ot E66.9 OBESITY, UNSPECIFIED 08/19/2017 TOI DODD Ot F17.210 NICOTINE DEPENDENCE, CIGARETTES, UNCOMPL 08/19/2017 TOI DODD Ot G43.909 MIGRAINE, UNSP, NOT INTRACTABLE, WITHOUT 08/19/2017 TOI DODD Ot G44.209 TENSION-TYPE HEADACHE, UNSPECIFIED, NOT 08/19/2017 TOI DODD Ot R 51 HEADACHE 08/19/2017 TOI DODD Ot Z68.39 BODY MASS INDEX (BMI) 39.0-39.9, ADULT 08/19/2017 TOI DODD Ot Z90.89 ACQUIRED ABSENCE OF OTHER ORGANS 08/19/2017 TOI DODD Ot Z98.51 TUBAL LIGATION STATUS 08/21/2017 TOI DODD Ot E03.9 HYPOTHYROIDISM, UNSPECIFIED 08/21/2017 TOI DODD Ot E66.9 OBESITY, UNSPECIFIED 08/21/2017 TOI DODD Ot F17.210 NICOTINE DEPENDENCE, CIGARETTES, UNCOMPL 08/21/2017 TOI DODD Ot G43.909 MIGRAINE, UNSP, NOT INTRACTABLE, WITHOUT 08/21/2017 TOI DODD Ot G44.209 TENSION-TYPE HEADACHE, UNSPECIFIED, NOT 08/21/2017 TOI DODD Ot R 51 HEADACHE 08/21/2017 TOI DODD Ot Z90.89 ACQUIRED ABSENCE OF OTHER ORGANS 08/21/2017 TOI DODD Ot Z98.51 TUBAL LIGATION STATUS 08/22/2017 TOI DODD Ot E03.9 HYPOTHYROIDISM, UNSPECIFIED 08/22/2017 TOI DODD Ot E66.9 OBESITY, UNSPECIFIED 08/22/2017 TOI DODD L Ot F17.210 NICOTINE DEPENDENCE, CIGARETTES, UNCOMPL 08/22/2017 TOI DODD Ot G43.909 MIGRAINE, UNSP, NOT INTRACTABLE, WITHOUT 08/22/2017 TOI DODD Ot G44.209 TENSION-TYPE HEADACHE, UNSPECIFIED, NOT 08/22/2017 TOI DODD Ot R 51 HEADACHE 08/22/2017 TOI DODD Ot Z68.39 BODY MASS INDEX (BMI) 39.0-39.9, ADULT 08/22/2017 TOI DODD Ot Z90.89 ACQUIRED ABSENCE OF OTHER ORGANS 08/22/2017 TOI DODD Ot Z98.51 TUBAL LIGATION STATUS 09/26/2018 NOAH, ALPHONSO INSTRUMENT MECHANIC Ot E03.9 HYPOTHYROIDISM, UNSPECIFIED 09/26/2018 NOAH, ALPHONSO INSTRUMENT MECHANIC Ot E66.9 OBESITY, UNSPECIFIED 09/26/2018 NOAH, ALPHONSO INSTRUMENT MECHANIC Ot F17.210 NICOTINE DEPENDENCE, CIGARETTES, UNCOMPL 09/26/2018 NOAH, ALPHONSO INSTRUMENT MECHANIC Ot G43.909 MIGRAINE, UNSP, NOT INTRACTABLE, WITHOUT 09/26/2018 NOAH, ALPHONSO INSTRUMENT MECHANIC Ot N83.202 UNSPECIFIED OVARIAN CYST, LEFT SIDE 09/26/2018 NOAH, ALPHONSO INSTRUMENT MECHANIC Ot R10.31 RIGHT LOWER QUADRANT PAIN 09/26/2018 NOAH, ALPHONSO INSTRUMENT MECHANIC Ot Z68.41 BODY MASS INDEX (BMI) 40.0-44.9, ADULT 09/26/2018 NOAH, ALPHONSO INSTRUMENT MECHANIC Ot Z90.89 ACQUIRED ABSENCE OF OTHER ORGANS 09/26/2018 NOAH, ALPHONSO INSTRUMENT MECHANIC Ot Z98.51 TUBAL LIGATION STATUS 09/30/2018 NOAH, ALPHONSO INSTRUMENT MECHANIC Ot E03.9 HYPOTHYROIDISM, UNSPECIFIED 09/30/2018 ALPHONSO ZAMORA Ot E66.9 OBESITY, UNSPECIFIED 09/30/2018 ALPHONSO ZAMORA Ot F17.210 NICOTINE DEPENDENCE, CIGARETTES, UNCOMPL 09/30/2018 ALPHONSO ZAMORA Ot G43.909 MIGRAINE, UNSP, NOT INTRACTABLE, WITHOUT 09/30/2018 ALPHONSO ZAMORA Ot N83.202 UNSPECIFIED OVARIAN CYST, LEFT SIDE 09/30/2018 ALPHONSO ZAMORA Ot R10.31 RIGHT LOWER QUADRANT PAIN 09/30/2018 ALPHONSO ZAMORA Ot Z68.41 BODY MASS INDEX (BMI) 40.0-44.9, ADULT 09/30/2018 ALPHONSO ZAMORA Ot Z90.89 ACQUIRED ABSENCE OF OTHER ORGANS 09/30/2018 ALPHONSO ZAMORA Ot Z98.51 TUBAL LIGATION STATUS Procedures Code Description Performed By Per formed On 75.69 REPA IR OB LACERATION NEC 08/03/2011 63472 ROUT INE VENIPUNCTURE 11/18/2014 09648 CBC 11/19/2014 95517 CMP 11/19/2014 4494620 GF R CALC (RESULT ONLY) 11/19/2014 28816 TSH 11/19/2014 Results Test Result Range Complete urinalysis with reflex to cultu re - 09/26/18 18:02 Urine color determination YELLOW NRG Urine clarity determination CLEAR NR G Urine pH measurement by test strip 7 5-9 Specific gravity of urine by test strip 1.010 1.016-1.022 Urine protein assay by test strip, semi-quantitative NEGATIVE NEGATIVE Urine glucose detection by automated test strip NE GATIVE NEGATIVE Erythrocytes detection in urine sediment by light micr oscopy NEGATIVE NEGATIVE Urine ketones detection by automated test strip NE GATIVE NEGATIVE Urine nitrite detection by test strip NEGATIVE NEGATIVE Urine total bilirubin detection by test strip NEGA TIVE NEGATIVE Urine urobilinogen measurement by automated test strip (mass/volume) NORMAL NORMAL Urine leukocyte esterase detection by dipstick 1+ NEGATIVE Automated urine sediment erythrocyte cou nt by microscopy (number/high power field) RARE NRG Automated urine sediment leukocyte count by microscopy (number/high power field) [HPF] NRG Bacteria detection in urine sediment by light microsco py TRACE NRG Squamous epithelial cells detection in u rine sediment by light microscopy 2-5 NRG Crystals detection in urine sediment by light microsco py NONE NRG Casts detection in urine sediment by light microscopy NONE NRG Mucus detection in urine sediment by light microscopy NEGATIVE NRG Complete urinalysis with reflex to culture NO NRG Complete blood count (CBC) with automate d white blood cell (WBC) differential - 09/26/18 18:10 Blood leukocytes automated count (number/volume) 8.1 10*3/uL 4.3-11.0 Blood erythrocytes automated count (number/volume) 4.88 10*6/uL 4.35-5.85 Venous blood hemoglobin measurement (mass/volume) 13.9 g/dL 11.5-16.0 Blood hematocrit (volume fraction) 42 % 35-52 Automated erythrocyte mean corpuscular volume 87 [ foz_us] 80-99 Automated erythrocyte mean corpuscular h emoglobin (mass per erythrocyte) 29 pg 25-34 Automated erythrocyte mean corpuscular h emoglobin concentration measurement (mass/volume) 33 g/dL 32-36 Automated erythrocyte distribution width ratio 15. 4 % 10.0- 14.5 Automated blood platelet count (count/volume) 301 10*3/uL 130-400 Automated blood platelet mean volume measurement 10.4 [foz_us] 7.4-10.4 Automated blood neutrophils/100 leukocytes 63 % 42-75 Automated blood lymphocytes/100 leukocytes 30 % 12-44 Blood monocytes/100 leukocytes 6 % 0-12 Automated blood eosinophils/100 leukocytes 1 % 0-10 Automated blood basophils/100 leukocytes 0 % 0-10 Blood neutrophils automated count (number/volume) 5.1 10*3 1.8-7.8 Blood lymphocytes automated count (number/volume) 2.4 10*3 1.0-4.0 Blood monocytes automated count (number/volume) 0. 5 10*3 0.0-1.0 Automated eosinophil count 0.1 10*3/uL 0 .0-0.3 Automated blood basophil count (count/volume) 0.0 10*3/uL 0.0-0.1 Comprehensive metabolic panel - 09/26/18 18:10 Serum or plasma sodium measurement (moles/volume) 138 mmol/L 135-145 Serum or plasma potassium measurement (moles/volume) 3.8 mmol/L 3.6-5.0 Serum or plasma chloride measurement (moles/volume) 104 mmol/L 98-107 Carbon dioxide 24 mmol/L 21-32 Serum or plasma anion gap determination (moles/volume) 10 mmol/L 5-14 Serum or plasma urea nitrogen measurement (mass/volume ) 9 mg/dL 7-18 Serum or plasma creatinine measurement (mass/volume) 0.78 mg/dL 0.60-1.30 Serum or plasma urea nitrogen/creatinine mass ratio 12 NRG Serum or plasma creatinine measurement w ith calculation of estimated glomerular filtration rate > NRG Serum or plasma glucose measurement (mass/volume) 78 mg/dL 70-105 Serum or plasma calcium measurement (mass/volume) 9.0 mg/dL 8.5-10.1 Serum or plasma total bilirubin measurement (mass/volu me) 0.2 mg/dL 0.1-1.0 Serum or plasma alkaline phosphatase moises surement (enzymatic activity/volume) 86 U/L 40-136 Serum or plasma aspartate aminotransfera se measurement (enzymatic activity/volume) 19 U/L 5-34 Serum or plasma alanine aminotransferase measurement (enzymatic activity/volume) 18 U/L 0-55 Serum or plasma protein measurement (mass/volume) 7.4 g/dL 6.4-8.2 Serum or plasma albumin measurement (mass/volume) 4.2 g/dL 3.2-4.5 CALCIUM CORRECTED 8.8 mg/dL 8.5-10.1 Serum or plasma amylase measurement (enz ymatic activity/volume) - 09/26/18 18:10 Serum or plasma amylase measurement (enzymatic activit y/volume) 38 U/L 25-125 Lipase - 09/26/18 18:10 Lipase 22 U/L 8-78 THYROID ANALYZER - 10/02/19 13:25 TSH 3.99 mIU/L NRG Encounters ACCT No. Visit Date/Time Discharge Status Pt. Type Provider Facility Loc./Unit Complaint [id number] 11/18/2014 15:54:00 11/18/2014 23:59: 59 [facility] Outpatient NILSA DOYLE DO [id number] 08/19/2014 15:42:00 08/19/2014 23:59: 59 [facility] Outpatient NILSA DOYLE DO [id number] 07/21/2014 09:57:00 07/21/2014 23:59: 59 [facility] Outpatient NISLA DOYLE DO [id number] 06/23/2014 17:19:00 06/23/2014 23:59: 59 [place] [id number] 07/04/2012 08:49:00 07/04/2012 23:59:5 9 [facility] Outpatient [id number] 07/04/2012 08:49:00 07/04/2012 23:59: 59 [facility] Outpatient [id number] 03/14/2013 14:38:00 Document Registration [id number] 11/12/2019 15:40:00 11/12/2019 23:59:5 9 CLS Outpatient JAISON QURESHI APRN [facility] [address] [place] [address] [id number] 10/02/2019 11:00:00 Document Registration [id number] 11/20/2018 10:00:00 23:59:59 CLS Preadmit COURTNEY NO, WILLOW Nunez [facility] RAD OVARIAN CYST [id number] 09/26/2018 17:56:00 019 20:00:00 DIS Emergency ALPHONSO ZAMORA [facility] ER ABD PAIN [id number] 08/19/2017 20:55:00 018 23:03:00 DIS Emergency TOI DODD [facility] ER NECK PAIN [id number] 11/28/2016 10:35:00 017 13:45:00 DIS Emergency TOI DODD [facility] ER MIGRAINE [id number] 06/26/2016 17:32:00 016 18:54:00 DIS Emergency ROBERT LIANG MD [facility] ER COUGH/SOA [id number] 11/17/2014 21:26:00 015 00:19:00 DIS Emergency RO GEIGER DO a [facility] ER DIFFICULTY BREATHING, L ARM NUMBNESS [id number] 09/26/2014 13:30:00 Document Registration [id number] 08/02/2011 22:10:00 Document Registration [id number] 08/02/2011 13:14:00 Document Registration [id number] 06/16/2011 13:00:00 Document Registration [id number] 03/11/2011 17:19:00 Document Registration [id number] 12/26/2010 09:44:00 Document Registration [id number] 12/19/2010 18:21:00 Document Registration [id number] 01/25/2010 21:30:00 Document Registration
--- NOTE | 2020-01-10 17:41 | Diagnostic Imaging Report ---
PROCEDURE: CT abdomen and pelvis with contrast, rule out appendicitis. TECHNIQUE: Multiple contiguous axial images were obtained through the abdomen and pelvis after the administration of intravenous contrast. All CT scans use one or more of the following dose optimizing techniques: automated exposure control, MA and/or KvP adjustment based on a patient size and exam type, or iterative reconstruction. INDICATION: Lower abdominal pain. COMPARISON: Comparison is made with a study from 09/26/2018. FINDINGS: The liver, gallbladder and bile ducts are normal. The spleen, pancreas and adrenals are normal. There is a subcentimeter cyst present in the right kidney. The left kidney is normal. Bladder is normal. There is no pelvic mass. The appendix is normal. No acute bowel abnormality is seen. There is no bony abnormality. IMPRESSION: No acute abnormality is seen. The left ovarian cyst seen on the 09/26/2018 study has resolved. Dictated by: Dictated on workstation # [id number]
--- NOTE | 2020-01-10 19:00 | NUR ---
Report given to LISA Edmond.
[2020-01-10 19:02] LABS: BILIRUBIN,URINE NEGATIVE (NEGATIVE); CLARITY,URINE CLEAR; COLOR,URINE YELLOW; GLUCOSE, URINE (UA) NEGATIVE (NEGATIVE); KETONES,URINE NEGATIVE (NEGATIVE); LEUKOCYTE ESTERASE ,URINE NEGATIVE (NEGATIVE); NITRITE,URINE NEGATIVE (NEGATIVE); PROTEIN,URINE NEGATIVE (NEGATIVE)
[2020-01-10 19:20] LABS: BACTERIA,URINE TRACE /HPF; SQUAMOUS EPITHELIAL CELL,UR 0-2 /HPF
[2020-01-10] MEDS ORDERED: ONDA4TAB11 PO (19:29)
[2020-01-10 19:33] VITALS: BP 141/73
== END 2020-01-10 19:36 | disposition home or self-care (01) ==
LOC: EDUNIT# 15:17 → ER 15:19
DX: R10.31 Right lower quadrant pain (principal); E66.9 Obesity, unspecified; Z77.22 Contact with and (suspected) exposure to environmental tobacco smoke (acute) (chronic); Z68.41 Body mass index [BMI] 40.0-44.9, adult
CPT/HCPCS: 36415; 51701; 74177; 80053; 81000; 84703; 85025; 86141

== ENCOUNTER 2020-02-19 05:53 | Outpatient (RCR) | payer MEDICAID ==
[~2020-02-19 05:53] MED LIST changes: +ONDA4TAB11 PO
== END 2020-05-19 | disposition home or self-care (01) ==
LOC: PREOP 05:53
PROVIDERS: ATTEND Surgery
DX: Z01.818 Encounter for other preprocedural examination (principal)